=== PATIENT | female | born 1990 | race Caucasian/White ===

== ENCOUNTER 2018-04-22 21:08 | Inpatient (IN) ==
[2018-04-22] MEDS ORDERED: Ondansetron 4 MG/2 ML VIAL IVP PRN (23:46)
[2018-04-22] MEDS ORDERED: Acetaminophen 325 MG TABLET PO PRN (23:46)
[2018-04-22] MEDS ORDERED: *HR* FentaNYL (PF) 100 MCG/2 ML VIAL IVP PRN (23:46)
[2018-04-22] MEDS ORDERED: *HR* Promethazine 25 MG/ML VIAL IVP PRN (23:46)
[2018-04-22] MEDS ORDERED: Naloxone 0.4 MG/ML INJ IVP PRN (23:46)
[2018-04-23 00:54] LABS: Basophils # 0.1 K/mcL (0.0-0.2); Basophils % 0.4 %; Eosinophils # 0.1 K/mcL (0.0-0.6); Eosinophils % 0.6 %; Hematocrit 39.3 % (35.3-44.9); Hemoglobin 12.7 g/dL (11.5-15.4); Immature Granulocytes % 0.3 % (0-4); Lymphocytes # 3.3 K/mcL (0.6-4.6); Mean Corpuscular HGB Conc 32.3 g/dL (31.6-35.5); Mean Corpuscular Hemoglobin 29.1 pg (28.0-33.3); Mean Corpuscular Volume 89.9 fL (83.0-100.0); Mean Platelet Volume 10.1 fL (9.4-12.4); Monocytes # 0.6 K/mcL (0.0-1.3); Monocytes % 4.7 %; Neutrophils # 8.7 K/mcL (1.6-8.9); Platelet Count 448 K/mcL (140-400); Red Blood Count 4.37 M/mcL (3.82-4.97); Red Cell Distribution Width 14.3 % (11.5-14.5)
[2018-04-23 01:04] LABS: Activated Partial Thrombo Time 28.5 Seconds (26.0-36.0)
--- NOTE | 2018-04-23 01:07 | Internal Med History&Physical ---
Date of Encounter: 04/22/18 Time of Encounter: 23:25 Internal Medicine - H&P: HPI Chief complaint: flank pain; N/V; fever; UTI Admitted From: Hospital to Hospital Transfer Plans for Post Hospital Care: Home History of present illness: Ms. Castillo is a 27 year old female who presents in transfer from [facility]. She presented there with complaints of flank pain, nausea, vomiting, fever, and UTI. She was found to have evidence of obstructive uropathy on imaging with a 4 mm ureteral stone and subsequent hydronephrosis. She also has evidence of UTI. [facility] tried to transfer her to [facility] where her urologist practices, but unfortunately, her urologist is not available this weekend. [facility] therefore contacted [place] and requested transfer here. Dr. Shaffer accepted the patient in transfer with consultation to him and requested hospitalist admission. I spoke with the ER staff at [facility] and accepted the patient in transfer. Unfortunately I cannot find her transfer records and/or imaging report. However, per verbal discussion with the ER staff, the above was communicated to me. Upon my assessment of the patient, patient appears uncomfortable, nauseated, and dehydrated. She denies any chills or night sweats, but she has had some fevers. She has had dysuria, urgency, frequency, and some hematuria. She has been on Macrodantin for about a week for UTI without relief. She developed flank pain with subsequent nausea and vomiting over the last 24 hours, and these symptoms have progressively worsened. Patient has a history of recurrent kidney stones and UTI. She has a history of vesicoureteral reflux and has had multiple interventions for a ureteral stenting, ureteral reimplantation, and urologic studies. Unfortunately, patient is allergic to multiple antibiotics and pain medications with significant reactions. I called our pharmacist and discussed options with him. Recommendation is to treat her with ertapenem antibiotic and fentanyl for narcotic pain control. Past Med Surg Social Fam HX - Past Medical History Attestation: Yes The following information was validated with the patient. Source: patient, other (phone conversation with [facility]) Medical history: hypertension, kidney stones, migraine Additional medical history: kidney stones, bladder infection, kidney infection, feverable seizures, tubes in ears, migraines Psychiatric history: anxiety, depression - Past Surgical History Additional surgical history: kidney surgery, tubes in ears - Social History Smoking Status: Never smoker Smokeless Tobacco Status: No Alcohol use: none Drug use: none Current living situation: Home Activity Level: Independent ambulation Recent Out of Country Travel Within the Last 8 Weeks: No - Family History Father Hx Family Cardiac Disorders: Yes (HTN) Hx Family Endocrine Disorder: Yes (diabetes) Internal Medicine - H&P: Meds DiphenhydraMINE [Benadryl] 25 mg PO HS 04/22/18 [History] Effexor Xr 04/22/18 [History] Losartan Potassium [Cozaar] 50 mg PO DAILY 04/22/18 [History] Melatonin 10 mg PO HS 04/22/18 [History] Omeprazole [PriLOSEC] 40 mg PO DAILY 04/22/18 [History] Ranitidine HCl [Acid Wedding Decorator] 150 mg PO HS 04/22/18 [History] Venlafaxine XR (24 HR) [Effexor XR] 37.5 mg PO DAILY 04/22/18 [History] Venlafaxine XR (24 HR) [Effexor XR] 150 mg PO DAILY 04/22/18 [History] Verapamil [Isoptin] 80 mg PO DAILY 04/22/18 [History] 3 Allergy/AdvReac Type Severity Reaction Status Date / Time cephalexin [From Keflex] Allergy Hives Verified 04/22/18 23:15 ciprofloxacin [From Cipro] Allergy Hives Verified 04/22/18 23:15 ketorolac [From Toradol] Allergy Hives Verified 04/22/18 23:15 levofloxacin [From Levaquin] Allergy Hives Verified 04/22/18 23:15 morphine Allergy Hives Verified 04/22/18 23:15 Penicillins Allergy Hives Verified 04/22/18 23:15 - Constitutional Constitutional: fever(s), no chills, no night sweats - EENT Eyes: no blurry vision, no change in vision Ears: no ear pain, no tinnitus Nose, mouth and throat: no sore throat - Cardiovascular Cardiovascular ROS IM: no chest pain, no dyspnea - Respiratory Respiratory: no cough, no hemoptysis - Gastrointestinal Gastrointestinal: nausea, vomiting, no abdominal pain, no diarrhea, no hematemesis, no hematochezia, no melena - Genitourinary Genitourinary: dysuria, flank pain, hematuria, urinary urgency - Musculoskeletal Musculoskeletal ROS IM: no arthralgias, no joint swelling - Integumentary Integumentary IM: no rash, no jaundice - Neurological Neurological ROS: no focal weakness, no headache(s) - Psychiatric Psychiatric: no anxiety, no depression - Endocrine Endocrine IM: no polydipsia, no polyuria - Allergic/Immunologic Allergic/Immunologic: no GI upset with certain foods - Constitutional Vitals: Temp Pulse Resp BP Pulse Ox 98.4 F 131 18 131/87 100 04/22/18 23:31 04/22/18 23:31 04/22/18 23:31 04/22/18 23:31 04/22/18 23:31 General appearance: Present: cooperative, mild distress, A&O X 3, pleasant, answers questions appropriately Exam: nauseated, in moderate pain, and dehydrated - Head Head exam: Present: atraumatic, normal inspection - Eye Eye exam: Present: EOMI, PERRL. Absent: scleral icterus Pupils: Present: normal accommodation - ENT ENT exam: Present: mucous membranes dry, normal exam, normal oropharynx - Neck Neck exam general surgery: Present: full ROM, supple. Absent: tenderness, nuchal rigidity, thyromegaly - Respiratory Respiratory exam: Present: CTAB. Absent: rales, respiratory distress, rhonchi, wheezes - Cardiovascular Cardiovascular exam: Present: RRR, +S1, +S2, tachycardia. Absent: diastolic murmur, systolic murmur - GI/Abdominal GI/Abdominal exam: Present: normal bowel sounds, soft, tenderness (suprapubic), no peritoneal signs. Absent: guarding, hepatomegaly, mass, rebound, splenomegaly - Extremities Exam Extremities exam: Present: normal capillary refill, warm, radial pulses palpable and symmetrical. Absent: calf tenderness, joint swelling, pedal edema - Back Exam Back exam: Present: CVA tenderness (L), CVA tenderness (R), normal inspection - Neurological Exam Neurological exam: Present: alert, CN II-XII intact, oriented X3, no focal deficits, strengths equal and symetr throughout - Psychiatric Psychiatric exam: Present: normal affect, normal mood - Skin Skin exam: Present: dry, warm. Absent: rash Internal Med - H&P Results - Labs CBC & Chem 7: 04/23/18 00:36 Labs: Short CBC 06/16/18 Range/Units 00:36 WBC 12.8 H (4.3-11.1) K/mcL Hgb 12.7 (11.5-15.4) g/dL Hct 39.3 (35.3-44.9) % Plt Count 448 H (140-400) K/mcL Neutrophils # 8.7 (1.6-8.9) K/mcL - Assessment and plan (1) Pyelonephritis Current Visit: Yes Status: Acute Assessment and plan: 1. Will order blood and urine cultures. 2. Aggressive IVF hydration. 3. Will treat with Ertapenem antibiotics as discussed with pharmacy. 4. Follow cultures and adjust antibiotics as necessary. (2) Obstructive uropathy Current Visit: Yes Status: Acute Assessment and plan: 1. 4 mm kidney stone with hydronephrosis as noted per discussions with Arnoldo CHOUDHARY. 2. Dr. Shaffer consulted and plans for cystoscopy and stent placement in the morning. 3. IVF hydration, pain medication, anti-emetics as needed. 4. Follow renal function and I/O closely. (3) Urolithiasis Current Visit: Yes Status: Acute Assessment and plan: 1. As noted above, IVF hydration and pain/nausea control. 2. Stone extraction, cystoscopy, stenting per urology. Qualifiers: Urinary calculus location: ureter Qualified Code(s): N20.1 - Calculus of ureter (4) DVT prophylaxis Current Visit: Yes Status: Acute Assessment and plan: 1. Heparin SQ.
[2018-04-23 01:13] LABS: Alanine Aminotransferase 13 Units/L (7-52); Albumin 3.9 g/dL (3.5-5.7); Albumin/Globulin Ratio 1.3 (1.1-2.2); Alkaline Phosphatase 118 Units/L (34-104); Aspartate Amino Transferase 15 Units/L (13-39); BUN/Creatinine Ratio 5 (6-26); Bilirubin,Total 0.6 mg/dL (0.3-1.0); Blood Urea Nitrogen 4 mg/dL (6-20); Calcium 8.9 mg/dL (8.6-10.3); Carbon Dioxide 22 mEq/L (23-29); Chloride 104 mEq/L (98-107); Glucose 99 mg/dL (70-105); Osmolality,Calculated 283 (280-300); Potassium 3.8 mEq/L (3.5-5.1); Sodium 138 mEq/L (136-145); Total Protein 6.9 g/dL (6.4-8.9); eGFR For African Americans > 60 (> 60); eGFR For Non-African Americans > 60 (> 60)
[2018-04-23] MEDS: Ertapenem 1,000 MG in 0.9 % Sodium Chloride Mini Bag 100 ML IVPB SCH (01:31)
[2018-04-23] MEDS: 0.9 % Sodium Chloride 1,000 ML IVC SCH ×2 (01:31→16:29)
[2018-04-23 01:34] LABS: INR 1.1; Prothrombin Time 11.7 Seconds (9.4-12.1)
[2018-04-23] MEDS ORDERED: 0.9 % Sodium Chloride 1,000 ML IV ONE (02:37)
[2018-04-23] MEDS: *HR* HYDROmorphone (PF) 1 MG/ML SYRINGE IVP PRN ×2 (02:45→05:47)
[2018-04-23] MEDS ORDERED: *HR* Heparin 5,000 UNIT/ML VIAL SQ SCH (06:00)
--- NOTE | 2018-04-23 06:48 | Urology - Consult Note ---
Date of Encounter: 04/23/18 Time of Encounter: 06:46 - Assessment and Plan (1) UTI (urinary tract infection) Current Visit: Yes Status: Acute Assessment and plan: 27-year-old woman with concern for urinary tract infection and obstructing right proximal ureteral stone. She has been started on ertapenem. Urine cultures are pending. She has been afebrile. We will continue antibiotic until her cultures return. Qualifiers: Urinary tract infection type: acute cystitis Hematuria presence: without hematuria Qualified Code(s): N30.00 - Acute cystitis without hematuria (2) Urolithiasis Current Visit: Yes Status: Acute Assessment and plan: 27-year-old woman with a right proximal ureteral stone. I recommend proceeding with a cystoscopy and right ureteral stent placement. I informed her of the risks of the surgery which include but are not limited to bleeding, infection, injury to other structures, need for further procedures, stent irritation, need for nephrostomy tube, and the risk of anesthesia. She is willing to proceed. Qualifiers: Urinary calculus location: ureter Qualified Code(s): N20.1 - Calculus of ureter Urology CN:[facility] Consult date: 04/23/18 Reason for consult Urology: Other (right ureteral stone) History of present illness: A 27-year-old woman with a long-standing history of nephrolithiasis was transferred from [facility] to [facility] for an obstructing right proximal ureteral stone. She developed right flank pain in the last 1-2 days. The pain became more severe. It radiated to the right lower quadrant. She had some nausea. She denies any fevers. She lives near [place]. She went to the [facility] ER in [place]. She was then transferred to [place] for further care. She reports a long-standing history of nephrolithiasis. She reports she has had multiple stone surgeries. In addition, she says she has had possible ureteral reflux surgery. She does have a Pfannenstiel incision scar. She reports that previous urologists have not had any issues accessing her ureters. She reports that her mother and father both have a history of kidney stones. She reports that she was recently diagnosed with a urinary tract infection. She was given antibiotic as well as Pyridium. She has not had any fevers upon admission. Past Med Surg Social Fam HX - Past Medical History Medical history: hypertension, kidney stones, migraine Additional medical history: kidney stones, bladder infection, kidney infection, feverable seizures, tubes in ears, migraines Psychiatric history: anxiety, depression - Past Surgical History Additional surgical history: kidney surgery, tubes in ears - Social History Smoking Status: Never smoker Smokeless Tobacco Status: No Alcohol use: none Drug use: none - Family History Father Hx Family Cardiac Disorders: Yes (HTN) Hx Family Endocrine Disorder: Yes (diabetes) Medications and Allergies DiphenhydraMINE [Benadryl] 25 mg PO HS 04/22/18 [History] Effexor Xr 04/22/18 [History] Losartan Potassium [Cozaar] 50 mg PO DAILY 04/22/18 [History] Melatonin 10 mg PO HS 04/22/18 [History] Omeprazole [PriLOSEC] 40 mg PO DAILY 04/22/18 [History] Ranitidine HCl [Acid Cigarette Maker] 150 mg PO HS 04/22/18 [History] Venlafaxine XR (24 HR) [Effexor XR] 37.5 mg PO DAILY 04/22/18 [History] Venlafaxine XR (24 HR) [Effexor XR] 150 mg PO DAILY 04/22/18 [History] Verapamil [Isoptin] 80 mg PO DAILY 04/22/18 [History] 3 Allergy/AdvReac Type Severity Reaction Status Date / Time cephalexin [From Keflex] Allergy Hives Verified 04/22/18 23:15 ciprofloxacin [From Cipro] Allergy Hives Verified 04/22/18 23:15 ketorolac [From Toradol] Allergy Hives Verified 04/22/18 23:15 levofloxacin [From Levaquin] Allergy Hives Verified 04/22/18 23:15 morphine Allergy Hives Verified 04/22/18 23:15 Penicillins Allergy Hives Verified 04/22/18 23:15 Review of Systems - Constitutional no chills, no fever(s) - EENT Nose, mouth and throat: no dizziness - Cardiovascular no chest pain - Respiratory no dyspnea - Gastrointestinal nausea - Genitourinary Genitourinary: flank pain, no hematuria - Musculoskeletal no back pain - Integumentary no erythema, no rash - Neurological no weakness - Psychiatric no suicidal ideation - Hematologic/Lymphatic no easy bleeding - Allergic/Immunologic no wheezing Exam Initial Vital Signs Temp Pulse Resp BP Pulse Ox 98.4 F 131 18 131/87 100 04/22/18 23:31 04/22/18 23:31 04/22/18 23:31 04/22/18 23:31 04/22/18 23:31 - General physical appearance Present: well developed, well nourished, no distress - Eyes Absent: icteric - ENT Present: normal nares - Neck Present: trachea midline - Respiratory Present: normal respiratory effort - Cardiovascular Cardiovascular exam IM: RRR - Abdomen Abdomen: Present: soft (Pfannenstiel incision scar noted.) - Integumentary Present: no rash - Neurologic Present: normal coordination - Musculoskeletal Present: other (grossly normal.) Urology Results - Labs 04/23/18 00:36 04/23/18 00:36 Abnormal lab results WBC 12.8 K/mcL (4.3-11.1) H 04/23/18 00:36 Plt Count 448 K/mcL (140-400) H 04/23/18 00:36 Carbon Dioxide 22 mEq/L (23-29) L 04/23/18 00:36 BUN 4 mg/dL (6-20) L 04/23/18 00:36 BUN/Creatinine Ratio 5 (6-26) L 04/23/18 00:36 Alkaline Phosphatase 118 Units/L (34-104) H 04/23/18 00:36 Diabetes panel 04/23/18 Range/Units 00:36 Sodium 138 (136-145) mEq/L Potassium 3.8 (3.5-5.1) mEq/L Chloride 104 (98-107) mEq/L Carbon Dioxide 22 L (23-29) mEq/L BUN 4 L (6-20) mg/dL Creatinine 0.75 (0.60-1.20) mg/dL Glucose 99 (70-105) mg/dL Calcium 8.9 (8.6-10.3) mg/dL AST 15 (13-39) Units/L ALT 13 (7-52) Units/L Alkaline Phosphatase 118 H (34-104) Units/L Albumin 3.9 (3.5-5.7) g/dL Calcium panel 04/23/18 Range/Units 00:36 Calcium 8.9 (8.6-10.3) mg/dL Albumin 3.9 (3.5-5.7) g/dL Pituitary panel 04/23/18 Range/Units 00:36 Sodium 138 (136-145) mEq/L Potassium 3.8 (3.5-5.1) mEq/L Chloride 104 (98-107) mEq/L Carbon Dioxide 22 L (23-29) mEq/L BUN 4 L (6-20) mg/dL Creatinine 0.75 (0.60-1.20) mg/dL Glucose 99 (70-105) mg/dL Calcium 8.9 (8.6-10.3) mg/dL Adrenal panel 04/23/18 Range/Units 00:36 Sodium 138 (136-145) mEq/L Potassium 3.8 (3.5-5.1) mEq/L Chloride 104 (98-107) mEq/L Carbon Dioxide 22 L (23-29) mEq/L BUN 4 L (6-20) mg/dL Creatinine 0.75 (0.60-1.20) mg/dL Glucose 99 (70-105) mg/dL Calcium 8.9 (8.6-10.3) mg/dL Total Bilirubin 0.6 (0.3-1.0) mg/dL AST 15 (13-39) Units/L ALT 13 (7-52) Units/L Alkaline Phosphatase 118 H (34-104) Units/L Albumin 3.9 (3.5-5.7) g/dL All other labs normal. - Imaging CT scan - abdomen: report reviewed CT scan - pelvis: report reviewed Consult Discharge Plan - Plan Referrals: Rima Lam [Primary Care Provider] -
--- NOTE | 2018-04-23 07:12 | Anesthesia Evaluation PreOp ---
Date of Encounter: 04/23/18 Time of Encounter: 07:55 - Past History Planned Operation: Cystoscopy, ureteral stent placement Cardiac History: HTN Pulmonary History: Denies Any Significant HX E D TECH History: Other (Anxiety, Depression, Migraine headaches,) Other Medical History: Renal (VUR, Recurrent UTI, Transferred from OSH with onstructive uropathy secondary to ureteric stone, UTI), Other (MOrbid obesity, BMI 51) Anesthesia History: No Prior Anesthetic Complications, Past Anesthesia ( Multiple urological procedures for VUR) : No Test: Negative Alcohol Use: none Drug use: none Medications and Allergies DiphenhydraMINE [Benadryl] 25 mg PO HS 04/22/18 [History] Effexor Xr 04/22/18 [History] Losartan Potassium [Cozaar] 50 mg PO DAILY 04/22/18 [History] Melatonin 10 mg PO HS 04/22/18 [History] Omeprazole [PriLOSEC] 40 mg PO DAILY 04/22/18 [History] Ranitidine HCl [Acid Operations And Maintenance Technician] 150 mg PO HS 04/22/18 [History] Venlafaxine XR (24 HR) [Effexor XR] 37.5 mg PO DAILY 04/22/18 [History] Venlafaxine XR (24 HR) [Effexor XR] 150 mg PO DAILY 04/22/18 [History] Verapamil [Isoptin] 80 mg PO DAILY 04/22/18 [History] 3 Allergy/AdvReac Type Severity Reaction Status Date / Time cephalexin [From Keflex] Allergy Hives Verified 04/22/18 23:15 ciprofloxacin [From Cipro] Allergy Hives Verified 04/22/18 23:15 ketorolac [From Toradol] Allergy Hives Verified 04/22/18 23:15 levofloxacin [From Levaquin] Allergy Hives Verified 04/22/18 23:15 morphine Allergy Hives Verified 04/22/18 23:15 Penicillins Allergy Hives Verified 04/22/18 23:15 - Meds/Allergy Pre-op Review Medications Reviewed: Yes Allergies Reviewed: Yes Anesthesia Results - Labs 04/23/18 00:36 04/23/18 00:36 Laboratory Tests 04/23/18 00:36 Calcium 8.9 Alkaline Phosphatase 118 H Serum Total Protein 6.9 Albumin 3.9 Laboratory Tests 04/23/18 07:30 Urine Test Negative Anesthesia Exam O2 Sat Height 1.55 m Height 1.55 m Weight 121.7 kg Weight 115.666 kg O2 Sat by Pulse Oximetry 97 O2 Sat by Pulse Oximetry 100 O2 Sat by Pulse Oximetry 100 Vital Signs/O2 Sat, Most Current Temp Pulse Resp BP Pulse Ox 98.3 F 113 16 184/98 97 04/23/18 07:00 04/23/18 07:00 04/23/18 07:00 04/23/18 07:00 04/23/18 07:00 NPO (# of Hours): 8 - HEENT Pupil (Motor): Pupils equal Mallampati: IV Teeth: Normal Oral Opening: Greater than 3 - E D TECH LOC: Oriented - Cardiac Rhythm: Regular - Pulmonary Breath Sounds: bilateral Clear Anesthesia Assess/Plan ASA Score: 3 Modified Sherborn Scale for Level of Consciousness: Cooperative, oriented, and tranquil Anesthetic Plan: General Monitoring Plan: Standard Monitors Recovery Plan: PACU
[2018-04-23] MEDS ORDERED: Isovue-300 50 ML VIAL IVP ONE (07:53)
[2018-04-23] MEDS ORDERED: Metoclopramide 10 MG/2 ML VIAL ONE (07:58)
[2018-04-23] MEDS ORDERED: Famotidine 20 MG/2 ML VIAL ONE (07:58)
[2018-04-23 08:07] LABS: Bilirubin,Urine Negative (Negative); Blood,Urine Large (Negative); Clarity,Urine Clear (Clear); Color,Urine Yellow (Yellow); Glucose,Urine (UA) Normal (Normal); Ketones,Urine 40 mg/dL (Negative); Leukocyte Esterase,Urine Small (Negative); Nitrite,Urine Negative (Negative); Protein,Urine Negative (Neg-Trace); Specific Gravity,Urine 1.014 (1.010-1.025); Urobilinogen,Urine Normal (Normal)
[2018-04-23 08:10] LABS: Bacteria,Urine None Seen per hpf (None-Few); Hyaline Casts,Urine None Seen per lpf (None-Few); RBC,Urine 50-100 per hpf (0-3); Squamous Epithelial Cell,Urine Many per lpf (None-Few); WBC,Urine 15-30 per hpf (0-3)
[2018-04-23] MEDS ORDERED: *HR* FentaNYL (PF) 100 MCG/2 ML VIAL ONE ×2 (08:43)
[2018-04-23] MEDS ORDERED: Lidocaine -MPF 2% 2 ML VIAL ONE ×2 (08:43)
[2018-04-23] MEDS ORDERED: *HR* Midazolam HCl 2 MG/2 ML VIAL ONE (08:43)
[2018-04-23] MEDS ORDERED: *HR* Propofol 200 MG/20 ML VIAL IVP ONE (08:43)
[2018-04-23] MEDS ORDERED: *HR* Succinylcholine 200 MG/10 ML VIAL IVP ONE (08:43)
[2018-04-23] MEDS ORDERED: *HR* Promethazine 25 MG/ML VIAL IVP PRN (08:50)
[2018-04-23] MEDS ORDERED: Acetaminophen IV 1,000 MG/100 ML INFUS..BTL IVPB ONE (08:50)
[2018-04-23] MEDS ORDERED: Ondansetron 4 MG/2 ML VIAL IVP ONE (08:50)
[2018-04-23] MEDS ORDERED: Dexamethasone 4 MG/ML VIAL ONE (08:52)
--- NOTE | 2018-04-23 09:03 | Operative Note ---
Date of procedure: 04/23/18 Pre-op diagnosis: Right ureteral stone, urinary tract infection Post-op diagnosis: same Procedure: Cystoscopy, right ureteral stent placement Implants: 6-Kinyarwanda by 24 cm double-J stent Complications: None Anesthesia: GETA Surgeon: Lior Shaffer Was there an automotive parts counter assistant present: No Estimated blood loss (cc): 0 Specimen: None Condition: stable Disposition: PACU Procedure in Detail: Indications: Carlton is a 27-year-old woman who has a history of nephrolithiasis. She had a CT which showed a right proximal ureteral stone. She has concern for a urinary tract infection. She elected to undergo a cystoscopy and right ureteral stent placement. She was aware of the risks of the procedure including but not limited to bleeding, infection, injury to other structures, need for further procedures, stent irritation, need for nephrostomy tube, need for open repair, risks otherwise unforeseen, and the risk of anesthesia. She is willing to proceed. Procedure in Detail: After informed consent was obtained the patient was brought back to the operating room and placed in supine position. A time out was performed. General anesthesia was administered and an endotracheal tube was placed. She was then placed in the lithotomy position. She was prepped and draped in the usual sterile fashion. Cystoscopy was performed. The anterior urethra was normal. There was no evidence of bladder tumors. The ureteral orifices were in the normal orthotopic position. There was no duplication of the ureteral orifices. The sensor wire was placed in the right ureteral orifice. The wire was moved into the kidney under fluoroscopic guidance. A 6 Kinyarwanda by 24cm JJ stent was then placed. The dangle strings were removed. The bladder was drained. The patient was then awakened from general anesthesia and brought to recovery room in good condition. All sponge, needle, and instrument counts were correct.
[2018-04-23] MEDS ORDERED: *HR* Labetalol 20 MG/4 ML SYRINGE IVP PRN (09:12)
[2018-04-23] MEDS ORDERED: *HR* HYDROmorphone (PF) 1 MG/ML SYRINGE IVP PRN ×2 (09:34)
[2018-04-23] MEDS ORDERED: *HR* OxyCODONE Immed Rel 5 MG TABLET PO PRN ×3 (09:34→13:20)
[2018-04-23] MEDS ORDERED: OXYCODONE Oral CONC 10 MG/0.5 ML ORAL.SYG SL PRN (09:45)
--- NOTE | 2018-04-23 10:11 | Anesthesia Evaluation Post Op ---
Date of Encounter: 04/23/18 Time of Encounter: 10:10 - Vital Signs Vital Signs: Vital Signs/O2 Sat/Glucose, Most Recent Temp Pulse Resp BP Pulse Ox 97.6 F 115 20 157/94 94 04/23/18 10:04 04/23/18 10:04 04/23/18 10:04 04/23/18 10:04 04/23/18 10:04 return to baseline vitals, prn oxygen via nasal cannula - Lungs Lungs: Clear Ascult./Percussion - Airway Airway: Non-obstructed - Cardiovascular Regular Rate - Mental Status Mental Status: Alert & Oriented, Answers Appropriately - Pain Pain Scale: 0 (resting comfortably) Pain Scale used: Numeric (1 - 10) - Nausea Vomiting Nausea Vomiting: Not Present - Hydration Hydration: NPO - Discharge PostOp Status: Transfer Patient to floor
[2018-04-23] MEDS ORDERED: 0.9 % Sodium Chloride 1,000 ML IVC SCH (10:43)
[2018-04-23] MEDS ORDERED: Naloxone 0.4 MG/ML INJ IVP PRN (10:43)
[2018-04-23] MEDS ORDERED: Acetaminophen 325 MG TABLET PO PRN (10:43)
[2018-04-23] MEDS ORDERED: *HR* HYDROmorphone (PF) 1 MG/ML SYRINGE IVP ONE ×2 (11:54→21:56)
--- NOTE | 2018-04-23 11:55 | Internal Med Progress Note ---
<AngelicDaniel morales - Last Filed: 04/23/18 11:53> Date of Encounter: 04/23/18 Time of Encounter: 11:53 - Assessment and plan (1) Pyelonephritis Current Visit: Yes Status: Acute Assessment and plan: Likely secondary to obstructive uropathy in the setting of kidney stone. Status post cystoscopy with ureteral stent placement this morning. Clinically improved. Blood and urine cultures pending. Continue ertapenem given multiple antibiotic allergies. (2) Obstructive uropathy Current Visit: Yes Status: Acute Assessment and plan: Status post cystoscopy with stent placement this morning. Renal function was normal. We will continue to monitor daily. (3) Urolithiasis Current Visit: Yes Status: Acute Assessment and plan: Resolving of pyelonephritis as above. Status post cystoscopy with stent placement this morning. Urology following. Qualifiers: Urinary calculus location: ureter Qualified Code(s): N20.1 - Calculus of ureter (4) DVT prophylaxis Current Visit: Yes Status: Acute Assessment and plan: Heparin SQ. - Time Spent With Patient Total time spent is greater than 50% in coordination of care (as documented) at patient's floor/unit and/or counseling patient: - Subjective Interval history: Patient seen and examined at bedside. Patient reports mild dysuria and mild back pain that is improved since admission. She tolerated her cystoscopy well. She denies fever, chills, chest pain, shortness of breath - Constitutional Vitals: Temp Pulse Resp BP Pulse Ox 97.6 F 115 20 157/94 94 04/23/18 10:04 04/23/18 10:04 04/23/18 10:04 04/23/18 10:04 04/23/18 10:04 General appearance: Present: cooperative, A&O X 3, pleasant, answers questions appropriately - Respiratory Respiratory exam: Present: CTAB. Absent: rales, rhonchi, wheezes - Cardiovascular Cardiovascular exam: Present: RRR. Absent: gallop, rubs, systolic murmur - GI/Abdominal GI/Abdominal exam: Present: normal bowel sounds, soft, tenderness (mild diffuse) - Extremities Exam Extremities exam: Present: warm. Absent: pedal edema, tenderness Internal Medicine: Result - Labs CBC & Chem 7: 04/23/18 00:36 04/23/18 00:36 Labs: Short CBC 04/23/18 Range/Units 00:36 WBC 12.8 H (4.3-11.1) K/mcL Hgb 12.7 (11.5-15.4) g/dL Hct 39.3 (35.3-44.9) % Plt Count 448 H (140-400) K/mcL Neutrophils # 8.7 (1.6-8.9) K/mcL BMP 04/23/18 00:36 Sodium 138 Potassium 3.8 Chloride 104 Carbon Dioxide 22 L BUN 4 L Creatinine 0.75 Glucose 99 Calcium 8.9 Liver Function 04/23/18 Range/Units 00:36 Total Bilirubin 0.6 (0.3-1.0) mg/dL AST 15 (13-39) Units/L ALT 13 (7-52) Units/L Alkaline Phosphatase 118 H (34-104) Units/L Albumin 3.9 (3.5-5.7) g/dL Urine 04/23/18 Range/Units 07:30 Urine Color Yellow (Yellow) Urine Clarity Clear (Clear) Urine pH 6.0 (5.0-8.0) pH Units Ur Specific [place] 1.014 (1.010-1.025) Urine Protein Negative (Neg-Trace) mg/dL Urine Glucose (UA) Normal (Normal) mg/dL - ABG Interpretation ABG results: PT/INR, D-dimer PT 11.7 Seconds (9.4-12.1) 04/23/18 00:36 - Impressions Impressions [facility] X-Ray 04/23/18 06:27 IMPRESSION: 1. No visualized abnormal calcifications. D/ / Abdulaziz Remy MD / Abdulaziz Remy MD Interpreting Provider: Abdulaziz Remy MD Consult Discharge Plan - Plan Referrals: Rima Lam [Primary Care Provider] - <Andria Evans - Last Filed: 04/23/18 15:14> Date of Encounter: 04/23/18 - Assessment and plan (1) Pyelonephritis Current Visit: Yes Status: Acute (2) Obstructive uropathy Current Visit: Yes Status: Acute (3) Urolithiasis Current Visit: Yes Status: Acute Qualifiers: Urinary calculus location: ureter Qualified Code(s): N20.1 - Calculus of ureter (4) DVT prophylaxis Current Visit: Yes Status: Acute - Time Spent With Patient Total time spent is greater than 50% in coordination of care (as documented) at patient's floor/unit and/or counseling patient: - Constitutional Vitals: Temp Pulse Resp BP Pulse Ox 97.6 F 115 20 157/94 94 04/23/18 10:04 04/23/18 10:04 04/23/18 10:04 04/23/18 10:04 04/23/18 10:04 Internal Medicine: Result - Labs CBC & Chem 7: 04/23/18 00:36 04/23/18 00:36 Labs: Short CBC 04/23/18 Range/Units 00:36 WBC 12.8 H (4.3-11.1) K/mcL Hgb 12.7 (11.5-15.4) g/dL Hct 39.3 (35.3-44.9) % Plt Count 448 H (140-400) K/mcL Neutrophils # 8.7 (1.6-8.9) K/mcL BMP 04/23/18 00:36 Sodium 138 Potassium 3.8 Chloride 104 Carbon Dioxide 22 L BUN 4 L Creatinine 0.75 Glucose 99 Calcium 8.9 Liver Function 04/23/18 Range/Units 00:36 Total Bilirubin 0.6 (0.3-1.0) mg/dL AST 15 (13-39) Units/L ALT 13 (7-52) Units/L Alkaline Phosphatase 118 H (34-104) Units/L Albumin 3.9 (3.5-5.7) g/dL Urine 04/23/18 Range/Units 07:30 Urine Color Yellow (Yellow) Urine Clarity Clear (Clear) Urine pH 6.0 (5.0-8.0) pH Units Ur Specific [place] 1.014 (1.010-1.025) Urine Protein Negative (Neg-Trace) mg/dL Urine Glucose (UA) Normal (Normal) mg/dL - ABG Interpretation ABG results: PT/INR, D-dimer PT 11.7 Seconds (9.4-12.1) 04/23/18 00:36 - Impressions Impressions Fluoroscopy 04/23/18 00:00 IMPRESSION: Intraprocedural fluoroscopic spot images as above. See separate procedure report for more information. D/ / Mine Odell MD / Mine Odell MD Interpreting Provider: Mine Odell MD X-Ray 04/23/18 00:00 IMPRESSION: Intraprocedural fluoroscopic spot images as above. See separate procedure report for more information. D/ / Mine Odell MD / Mine Odell MD Interpreting Provider: Mine Odell MD X-Ray 04/23/18 06:27 IMPRESSION: 1. No visualized abnormal calcifications. D/ / Abdulaziz Remy MD / Abdulaziz Remy MD Interpreting Provider: Abdulaziz Remy MD - Attending Attestation I examined this patient and my medical decision-making was reviewed with the Resident Physician Dr. Valiente. I agree with the documented findings, disposition and treatment plan as described except to the extent set forth below. Ms. Castillo is a 27 year old female with recurrent UTI, Nephrolithiasis pt presented to [facility] ER with worsening Rt flank pain and Fever, chills. She does have obstructive uropathy with 4mm Rt distal ureter calculi and UTI too. So pt was transferred to our hospital for further care. She just cam eback from OR after cystoscopy with ureter stent placement.. Her pain is better now Gen: A, A, O x3 Chest: Diminished BS Heart: S1S+ Tachycardia Back : Rt CVA tenderness a/p 1. Sepsis 2. UTI 3. Pyelonephrtitis 4. Obstructive uropathy 5. Rt ureter cacluli IV fluids Analgesics Empirical abx s/p stent palcement 6. Uncontrolled HTN due to pain cont home meds also added Hydralazine PRN
[2018-04-23] MEDS: *HR* Heparin 5,000 UNIT/ML VIAL SQ SCH ×2 (14:07→19:57)
[2018-04-23] MEDS: Ondansetron 4 MG/2 ML VIAL IVP PRN ×2 (14:07→19:56)
[2018-04-23] MEDS: *HR* OxyCODONE Immed Rel 5 MG TABLET PO PRN (16:25)
[2018-04-23] MEDS: *HR* Promethazine 25 MG/ML VIAL IVP PRN ×2 (16:29→22:09)
[2018-04-23] MEDS ORDERED: MORPHINE SUL Oral CONC 10 MG/0.5 ML ORAL.SYG SL PRN (18:15)
[2018-04-23] MEDS ORDERED: *HR* FentaNYL (PF) 100 MCG/2 ML VIAL IVP PRN (18:26)
[2018-04-23] MEDS: Famotidine 20 MG TABLET PO SCH (19:57)
[2018-04-23] MEDS ORDERED: Famotidine 20 MG TABLET PO SCH (21:00)
--- NOTE | 2018-04-23 22:56 | Event Note ---
Date of Encounter: 04/23/18 Time of Encounter: 22:56 Per nursing, the patient threatened to leave AMA if her pain wasn't better controlled. She requested dialudid. Spoke with pharmacy and okay to give prn. I asked nursing to add documentation about the patients conversation with them about her wanting to leave AMA ,in the patient chart.
[2018-04-24] MEDS: 0.9 % Sodium Chloride 1,000 ML IVC SCH ×3 (00:23→17:25)
[2018-04-24] MEDS: *HR* OxyCODONE Immed Rel 5 MG TABLET PO PRN ×5 (01:07→21:14)
[2018-04-24] MEDS: *HR* Promethazine 25 MG/ML VIAL IVP PRN ×3 (04:13→21:13)
[2018-04-24] MEDS: *HR* HYDROmorphone 2 MG/ML SYRINGE IVP PRN ×2 (04:13→13:17)
[2018-04-24 05:21] LABS: Basophils % 0.1 %; Eosinophils % 0.1 %; Hematocrit 39.1 % (35.3-44.9); Hemoglobin 12.9 g/dL (11.5-15.4); Immature Granulocytes % 0.3 % (0-4); Lymphocytes # 1.7 K/mcL (0.6-4.6); Lymphocytes % 14.1 %; Mean Corpuscular Hemoglobin 29.9 pg (28.0-33.3); Mean Corpuscular Volume 90.7 fL (83.0-100.0); Mean Platelet Volume 10.3 fL (9.4-12.4); Monocytes # 0.6 K/mcL (0.0-1.3); Monocytes % 4.7 %; Neutrophils # 9.7 K/mcL (1.6-8.9); Platelet Count 446 K/mcL (140-400); Red Blood Count 4.31 M/mcL (3.82-4.97); Red Cell Distribution Width 14.3 % (11.5-14.5); Segmented Neutrophils % 80.7 %
[2018-04-24 06:27] LABS: BUN/Creatinine Ratio 6 (6-26); Blood Urea Nitrogen 4 mg/dL (6-20); Calcium 9.1 mg/dL (8.6-10.3); Carbon Dioxide 18 mEq/L (23-29); Chloride 109 mEq/L (98-107); Glucose 133 mg/dL (70-105); Osmolality,Calculated 287 (280-300); Potassium 4.5 mEq/L (3.5-5.1); Sodium 139 mEq/L (136-145); eGFR For African Americans > 60 (> 60); eGFR For Non-African Americans > 60 (> 60)
[2018-04-24] MEDS: *HR* Heparin 5,000 UNIT/ML VIAL SQ SCH ×3 (08:35→21:17)
[2018-04-24] MEDS: Ertapenem 1,000 MG in 0.9 % Sodium Chloride Mini Bag 100 ML IVPB SCH (08:41)
--- NOTE | 2018-04-24 09:38 | Urology Progress Note ---
Date of Encounter: 04/24/18 Time of Encounter: 09:36 - Assessment and Plan (1) UTI (urinary tract infection) Current Visit: Yes Status: Acute Assessment and plan: Await urine culture results from [facility]. Our urine culture was negative. Continue ertapenem for now. Hopefully, we will be able to transition to an oral medication which she is not allergic to. Qualifiers: Urinary tract infection type: acute cystitis Hematuria presence: without hematuria Qualified Code(s): N30.00 - Acute cystitis without hematuria (2) Urolithiasis Current Visit: Yes Status: Acute Assessment and plan: Postop day #1 status post right ureteral stent placement. She is having some pain. We will need to continue with oral pain medication and try to transition her off the need for IV narcotic. The stent will need to remain in place until definitive ureteroscopic stone extraction can be scheduled. I informed her this may not be until May before I can get her back in to the OR to remove her stone. Qualifiers: Urinary calculus location: ureter Qualified Code(s): N20.1 - Calculus of ureter Progress Note Narrative: Postop day #1 status post cystoscopy and right ureteral stent placement. She is having some pain after the stent placement. No fevers overnight. I called [facility], but no preliminary results are back on her urine culture. Objective Initial Vital Signs Temp Pulse Resp BP Pulse Ox 98.4 F 131 18 131/87 100 04/22/18 23:31 04/22/18 23:31 04/22/18 23:31 04/22/18 23:31 04/22/18 23:31 - General physical appearance Present: well developed, well nourished, no distress - Respiratory Present: normal respiratory effort - Abdomen Present: soft - Labs 04/24/18 04:58 04/24/18 04:58 Diabetes panel 04/24/18 Range/Units 04:58 Sodium 139 (136-145) mEq/L Potassium 4.5 (3.5-5.1) mEq/L Chloride 109 H (98-107) mEq/L Carbon Dioxide 18 L (23-29) mEq/L BUN 4 L (6-20) mg/dL Creatinine 0.66 (0.60-1.20) mg/dL Glucose 133 H (70-105) mg/dL Calcium 9.1 (8.6-10.3) mg/dL Calcium panel 04/24/18 Range/Units 04:58 Calcium 9.1 (8.6-10.3) mg/dL Pituitary panel 04/24/18 Range/Units 04:58 Sodium 139 (136-145) mEq/L Potassium 4.5 (3.5-5.1) mEq/L Chloride 109 H (98-107) mEq/L Carbon Dioxide 18 L (23-29) mEq/L BUN 4 L (6-20) mg/dL Creatinine 0.66 (0.60-1.20) mg/dL Glucose 133 H (70-105) mg/dL Calcium 9.1 (8.6-10.3) mg/dL Adrenal panel 04/24/18 Range/Units 04:58 Sodium 139 (136-145) mEq/L Potassium 4.5 (3.5-5.1) mEq/L Chloride 109 H (98-107) mEq/L Carbon Dioxide 18 L (23-29) mEq/L BUN 4 L (6-20) mg/dL Creatinine 0.66 (0.60-1.20) mg/dL Glucose 133 H (70-105) mg/dL Calcium 9.1 (8.6-10.3) mg/dL - VTE Documentation of Mechanical Device: Intermittent pneumatic compression device Consult Discharge Plan - Plan Referrals: Rima Lam [Primary Care Provider] -
--- NOTE | 2018-04-24 10:16 | Internal Med Progress Note ---
<Daniel Valiente - Last Filed: 04/24/18 10:13> Date of Encounter: 04/24/18 Time of Encounter: 10:14 - Assessment and plan (1) Pyelonephritis Current Visit: Yes Status: Acute Assessment and plan: Likely secondary to obstructive uropathy in the setting of kidney stone. Status post cystoscopy with ureteral stent placement yesterday morning. Still reporting significant pain, we will attempt to transition to oral pain medication. Blood and urine cultures no growth to date. We will attempt to obtain urine culture results from [facility] where the patient had her initial culture obtained. Continue ertapenem for now given multiple antibiotic allergies. (2) Obstructive uropathy Current Visit: Yes Status: Acute Assessment and plan: Status post cystoscopy with stent placement yesterday. Renal function remains normal. We will continue to monitor daily. (3) Urolithiasis Current Visit: Yes Status: Acute Assessment and plan: Status post cystoscopy with stent placement yesterday morning. Urology following. Qualifiers: Urinary calculus location: ureter Qualified Code(s): N20.1 - Calculus of ureter (4) DVT prophylaxis Current Visit: Yes Status: Acute Assessment and plan: Heparin SQ. - Time Spent With Patient Total time spent is greater than 50% in coordination of care (as documented) at patient's floor/unit and/or counseling patient: - Subjective Interval history: Patient seen and examined at bedside. Patient reports continued right flank pain with nausea and vomiting. She tolerated her cystoscopy well. She denies fever, chills, chest pain, shortness of breath - Constitutional Vitals: Temp Pulse Resp BP Pulse Ox 98.3 F 137 17 146/76 97 04/24/18 07:59 04/24/18 07:59 04/24/18 07:59 04/24/18 07:59 04/24/18 07:59 General appearance: Present: cooperative, A&O X 3, pleasant, answers questions appropriately - Respiratory Respiratory exam: Present: CTAB. Absent: rales, rhonchi, wheezes - Cardiovascular Cardiovascular exam: Present: tachycardia. Absent: gallop, irregular rhythm, rubs, systolic murmur - GI/Abdominal GI/Abdominal exam: Present: normal bowel sounds, soft. Absent: distended, tenderness Additional comments: Right flank tenderness - Extremities Exam Extremities exam: Present: pedal edema (Trace lower extremity bilaterally), warm. Absent: tenderness Internal Medicine: Result - Labs CBC & Chem 7: 04/24/18 04:58 04/24/18 04:58 Labs: Short CBC 04/24/18 Range/Units 04:58 WBC 12.0 H (4.3-11.1) K/mcL Hgb 12.9 (11.5-15.4) g/dL Hct 39.1 (35.3-44.9) % Plt Count 446 H (140-400) K/mcL Neutrophils # 9.7 H (1.6-8.9) K/mcL BMP 04/24/18 04:58 Sodium 139 Potassium 4.5 Chloride 109 H Carbon Dioxide 18 L BUN 4 L Creatinine 0.66 Glucose 133 H Calcium 9.1 - ABG Interpretation ABG results: PT/INR, D-dimer PT 11.7 Seconds (9.4-12.1) 04/23/18 00:36 - Impressions Impressions Fluoroscopy 04/23/18 00:00 IMPRESSION: Intraprocedural fluoroscopic spot images as above. See separate procedure report for more information. D/ / Mine Odell MD / Mine Odell MD Interpreting Provider: Mine Odell MD X-Ray 04/23/18 00:00 IMPRESSION: Intraprocedural fluoroscopic spot images as above. See separate procedure report for more information. D/ / Mine Odell MD / Mine Odell MD Interpreting Provider: Mine Odell MD - VTE Documentation of Mechanical Device: Intermittent pneumatic compression device Consult Discharge Plan - Plan Referrals: Rima Lam [Primary Care Provider] - <Andria Evans - Last Filed: 04/24/18 13:56> Date of Encounter: 04/24/18 - Assessment and plan (1) Pyelonephritis Current Visit: Yes Status: Acute (2) Obstructive uropathy Current Visit: Yes Status: Acute (3) Urolithiasis Current Visit: Yes Status: Acute Qualifiers: Urinary calculus location: ureter Qualified Code(s): N20.1 - Calculus of ureter (4) DVT prophylaxis Current Visit: Yes Status: Acute - Time Spent With Patient Total time spent is greater than 50% in coordination of care (as documented) at patient's floor/unit and/or counseling patient: - Constitutional Vitals: Temp Pulse Resp BP Pulse Ox 98.3 F 134 18 165/96 98 04/24/18 12:51 04/24/18 12:51 04/24/18 12:51 04/24/18 12:51 04/24/18 12:51 Internal Medicine: Result - Labs CBC & Chem 7: 04/24/18 04:58 04/24/18 04:58 Labs: Short CBC 04/24/18 Range/Units 04:58 WBC 12.0 H (4.3-11.1) K/mcL Hgb 12.9 (11.5-15.4) g/dL Hct 39.1 (35.3-44.9) % Plt Count 446 H (140-400) K/mcL Neutrophils # 9.7 H (1.6-8.9) K/mcL BMP 04/24/18 04:58 Sodium 139 Potassium 4.5 Chloride 109 H Carbon Dioxide 18 L BUN 4 L Creatinine 0.66 Glucose 133 H Calcium 9.1 - ABG Interpretation ABG results: PT/INR, D-dimer PT 11.7 Seconds (9.4-12.1) 04/23/18 00:36 - Attending Attestation I examined this patient and my medical decision-making was reviewed with the Resident Physician Dr. Valiente. I agree with the documented findings, disposition and treatment plan as described except to the extent set forth below. Ms. Castillo is a 27 year old female with recurrent UTI, Nephrolithiasis pt presented to [facility] ER with worsening Rt flank pain and Fever, chills. She does have obstructive uropathy with 4mm Rt distal ureter calculi and UTI too. So pt was transferred to our hospital for further care. She had cystoscopy with ureter stent placement.. Pt still c/o rt flank pain Gen: A, A, O x3 Chest: Diminished BS Heart: S1S+ Tachycardia Back : Rt CVA tenderness a/p 1. Sepsis 2. UTI 3. Pyelonephrtitis 4. Obstructive uropathy 5. Rt ureter cacluli IV fluids Analgesics Empirical abx s/p stent placement urine cx no growth here will f/u on Urine cx from [facility] 6. Uncontrolled HTN due to pain cont home meds also added Hydralazine PRN
[2018-04-24] MEDS: Ondansetron 4 MG/2 ML VIAL IVP PRN (17:24)
[2018-04-24] MEDS ORDERED: Sennosides/Docusate Sodium TABLET PO PRN (18:09)
[2018-04-24] MEDS: Famotidine 20 MG TABLET PO SCH (21:14)
[2018-04-24] MEDS: Ringers Solution, Lactated 1,000 ML IVC SCH (21:14)
[2018-04-25] MEDS: *HR* OxyCODONE Immed Rel 5 MG TABLET PO PRN ×5 (02:13→19:34)
[2018-04-25] MEDS: Ondansetron 4 MG/2 ML VIAL IVP PRN ×3 (02:13→19:34)
[2018-04-25 05:02] LABS: Basophils % 0.2 %; Eosinophils % 0.2 %; Hemoglobin 11.9 g/dL (11.5-15.4); Immature Granulocytes % 0.3 % (0-4); Lymphocytes # 3.3 K/mcL (0.6-4.6); Lymphocytes % 24.6 %; Mean Corpuscular HGB Conc 32.2 g/dL (31.6-35.5); Mean Corpuscular Hemoglobin 29.7 pg (28.0-33.3); Mean Corpuscular Volume 92.3 fL (83.0-100.0); Mean Platelet Volume 9.8 fL (9.4-12.4); Monocytes # 0.9 K/mcL (0.0-1.3); Monocytes % 6.9 %; Platelet Count 394 K/mcL (140-400); Red Blood Count 4.01 M/mcL (3.82-4.97); Red Cell Distribution Width 15.1 % (11.5-14.5); Segmented Neutrophils % 67.8 %
[2018-04-25 05:27] LABS: BUN/Creatinine Ratio 8 (6-26); Blood Urea Nitrogen 5 mg/dL (6-20); Calcium 8.5 mg/dL (8.6-10.3); Carbon Dioxide 22 mEq/L (23-29); Chloride 106 mEq/L (98-107); Glucose 106 mg/dL (70-105); Magnesium 1.9 mg/dL (1.6-2.6); Osmolality,Calculated 284 (280-300); Potassium 3.5 mEq/L (3.5-5.1); Sodium 138 mEq/L (136-145); eGFR For African Americans > 60 (> 60); eGFR For Non-African Americans > 60 (> 60)
[2018-04-25] MEDS: Ringers Solution, Lactated 1,000 ML IVC SCH ×2 (06:10→19:52)
[2018-04-25] MEDS: *HR* Promethazine 25 MG/ML VIAL IVP PRN ×3 (06:11→22:12)
[2018-04-25] MEDS: *HR* Heparin 5,000 UNIT/ML VIAL SQ SCH ×3 (06:17→21:15)
--- NOTE | 2018-04-25 08:08 | Urology Progress Note ---
Date of Encounter: 04/25/18 Time of Encounter: 08:04 - Assessment and Plan (1) UTI (urinary tract infection) Current Visit: Yes Status: Acute Assessment and plan: 27 year old woman s/p right ureteral stent placement. Doing okay today. 1. Will arrange for definitive right ureteroscopy, laser lithotripsy, and stent placement as an outpatient. 2. I called [facility] in [place]. Her urine culture grew greater than 100,000 gram-positive rods and no further sensitivities were obtained as the assumption was for lactobacillus growing out. We could consider use of Bactrim to treat any possible urinary tract infection if desired by the primary team to avoid her other allergies. Qualifiers: Urinary tract infection type: acute cystitis Hematuria presence: without hematuria Qualified Code(s): N30.00 - Acute cystitis without hematuria (2) Urolithiasis Current Visit: Yes Status: Acute Qualifiers: Urinary calculus location: ureter Qualified Code(s): N20.1 - Calculus of ureter Progress Note Narrative: POD #2 s/p cystoscopy and right ureteral stent placement. She is having some left hand swelling. Pain is adequately controlled. Nausea is okay today. Objective Initial Vital Signs Temp Pulse Resp BP Pulse Ox 98.4 F 131 18 131/87 100 04/22/18 23:31 04/22/18 23:31 04/22/18 23:31 04/22/18 23:31 04/22/18 23:31 - General physical appearance Present: well developed, well nourished, no distress - Respiratory Present: normal respiratory effort - Abdomen Present: soft - Musculoskeletal Present: other (left hand appears edematous) - Labs 04/25/18 04:40 04/25/18 04:40 Diabetes panel 04/25/18 Range/Units 04:40 Sodium 138 (136-145) mEq/L Potassium 3.5 (3.5-5.1) mEq/L Chloride 106 (98-107) mEq/L Carbon Dioxide 22 L (23-29) mEq/L BUN 5 L (6-20) mg/dL Creatinine 0.64 (0.60-1.20) mg/dL Glucose 106 H (70-105) mg/dL Calcium 8.5 L (8.6-10.3) mg/dL Calcium panel 04/25/18 Range/Units 04:40 Calcium 8.5 L (8.6-10.3) mg/dL Pituitary panel 04/25/18 Range/Units 04:40 Sodium 138 (136-145) mEq/L Potassium 3.5 (3.5-5.1) mEq/L Chloride 106 (98-107) mEq/L Carbon Dioxide 22 L (23-29) mEq/L BUN 5 L (6-20) mg/dL Creatinine 0.64 (0.60-1.20) mg/dL Glucose 106 H (70-105) mg/dL Calcium 8.5 L (8.6-10.3) mg/dL Adrenal panel 04/25/18 Range/Units 04:40 Sodium 138 (136-145) mEq/L Potassium 3.5 (3.5-5.1) mEq/L Chloride 106 (98-107) mEq/L Carbon Dioxide 22 L (23-29) mEq/L BUN 5 L (6-20) mg/dL Creatinine 0.64 (0.60-1.20) mg/dL Glucose 106 H (70-105) mg/dL Calcium 8.5 L (8.6-10.3) mg/dL - VTE Documentation of Mechanical Device: Intermittent pneumatic compression device Consult Discharge Plan - Plan Referrals: Rima Lam [Primary Care Provider] -
[2018-04-25] MEDS: Ertapenem 1,000 MG in 0.9 % Sodium Chloride Mini Bag 100 ML IVPB SCH ×2 (09:30→23:06)
--- NOTE | 2018-04-25 11:30 | Internal Med Progress Note ---
<Pedro Pablo Fontana - Last Filed: 04/25/18 13:14> Date of Encounter: 04/25/18 Time of Encounter: 08:35 - Assessment and plan (1) Pyelonephritis Current Visit: Yes Status: Acute Assessment and plan: Likely secondary to obstructive uropathy in the setting of kidney stone. Status post cystoscopy with ureteral stent placement on 04/23/18. Still reporting significant pain, attempting pain management with oral pain medication. Blood and urine cultures no growth to date. [facility] urine culture reported as growing greater than 100,000 gram-positive rods and no further sensitivities were obtained as the assumption was for lactobacillus growing out. Continue ertapenem for now given multiple antibiotic allergies (could consider bactrim). Encouraging patient to be more active today and get up from bed. (2) Obstructive uropathy Current Visit: Yes Status: Acute Assessment and plan: Status post cystoscopy with stent placement. Renal function remains normal. We will continue to monitor daily. (3) Urolithiasis Current Visit: Yes Status: Acute Assessment and plan: Status post cystoscopy with stent placement. Urology has been following; plan for definitive right ureteroscopy, laser lithotripsy, and stent placement as an outpatient. Qualifiers: Urinary calculus location: ureter Qualified Code(s): N20.1 - Calculus of ureter (4) DVT prophylaxis Current Visit: Yes Status: Acute Assessment and plan: Heparin SQ. - Time Spent With Patient Total time spent is greater than 50% in coordination of care (as documented) at patient's floor/unit and/or counseling patient: - Subjective Interval history: Patient seen and examined while lying in bed, initially sleeping, but easliy arousable. Patient states medications helping but still experiencing significant back pain/pressure. She states she has been getting up to go to the restroom without issue. Patient does not appear to be toxic or in acute distress. Denies chest pain, dyspnea, vomiting; admits nausea and back pain. - Constitutional Vitals: Temp Pulse Resp BP Pulse Ox 98.4 F 119 14 165/92 93 04/25/18 07:42 04/25/18 07:42 04/25/18 07:42 04/25/18 07:42 04/25/18 07:42 General appearance: Present: cooperative, A&O X 3, pleasant, no acute distress, answers questions appropriately - Head Head exam: Present: atraumatic, normal inspection, normocephalic - Eye Eye exam: Present: EOMI, normal appearance - ENT ENT exam: Present: mucous membranes dry - Neck Neck exam general surgery: Present: full ROM, normal inspection - Respiratory Respiratory exam: Present: CTAB. Absent: respiratory distress, rhonchi, stridor , wheezes - Cardiovascular Cardiovascular exam: Present: +S1, +S2, tachycardia. Absent: gallop, rubs - GI/Abdominal GI/Abdominal exam: Present: normal bowel sounds, soft, tenderness (diffuse tenderness, notes Right flank worst.). Absent: distended, firm, guarding - Neurological Exam Neurological exam: Present: alert, oriented X3, no focal deficits. Absent: speech deficit - Skin Skin exam: Present: intact, normal color, warm. Absent: rash Internal Medicine: Result - Labs CBC & Chem 7: 04/25/18 04:40 04/25/18 04:40 Labs: Short CBC 04/25/18 Range/Units 04:40 WBC 13.2 H (4.3-11.1) K/mcL Hgb 11.9 (11.5-15.4) g/dL Hct 37.0 (35.3-44.9) % Plt Count 394 (140-400) K/mcL Neutrophils # 9.0 H (1.6-8.9) K/mcL BMP 04/25/18 04:40 Sodium 138 Potassium 3.5 Chloride 106 Carbon Dioxide 22 L BUN 5 L Creatinine 0.64 Glucose 106 H Calcium 8.5 L - ABG Interpretation ABG results: PT/INR, D-dimer PT 11.7 Seconds (9.4-12.1) 04/23/18 00:36 - VTE Documentation of Mechanical Device: Intermittent pneumatic compression device Consult Discharge Plan - Plan Referrals: Rima Lam [Primary Care Provider] - 05/09/18 1:00 pm <Andria Evans - Last Filed: 04/25/18 17:58> Date of Encounter: 04/25/18 - Assessment and plan (1) Pyelonephritis Current Visit: Yes Status: Acute (2) Obstructive uropathy Current Visit: Yes Status: Acute (3) Urolithiasis Current Visit: Yes Status: Acute Qualifiers: Urinary calculus location: ureter Qualified Code(s): N20.1 - Calculus of ureter (4) DVT prophylaxis Current Visit: Yes Status: Acute - Time Spent With Patient Total time spent is greater than 50% in coordination of care (as documented) at patient's floor/unit and/or counseling patient: - Constitutional Vitals: Temp Pulse Resp BP Pulse Ox 98.4 F 137 14 137/86 96 04/25/18 15:42 04/25/18 15:42 04/25/18 15:42 04/25/18 15:42 04/25/18 15:42 Internal Medicine: Result - Labs CBC & Chem 7: 04/25/18 04:40 04/25/18 04:40 Labs: Short CBC 04/25/18 Range/Units 04:40 WBC 13.2 H (4.3-11.1) K/mcL Hgb 11.9 (11.5-15.4) g/dL Hct 37.0 (35.3-44.9) % Plt Count 394 (140-400) K/mcL Neutrophils # 9.0 H (1.6-8.9) K/mcL BMP 04/25/18 04:40 Sodium 138 Potassium 3.5 Chloride 106 Carbon Dioxide 22 L BUN 5 L Creatinine 0.64 Glucose 106 H Calcium 8.5 L - ABG Interpretation ABG results: PT/INR, D-dimer PT 11.7 Seconds (9.4-12.1) 04/23/18 00:36 - Attending Attestation I examined this patient and my medical decision-making was reviewed with the Resident Physician Dr. Fontana. I agree with the documented findings, disposition and treatment plan as described except to the extent set forth below. Ms. Castillo is a 27 year old female with recurrent UTI, Nephrolithiasis pt presented to [facility] ER with worsening Rt flank pain and Fever, chills. She does have obstructive uropathy with 4mm Rt distal ureter calculi and UTI too. So pt was transferred to our hospital for further care. She had cystoscopy with ureter stent placement.. Pt states she fels little better today Gen: A, A, O x3 Chest: Diminished BS Heart: S1S+ Tachycardia Back : Rt CVA tenderness a/p 1. Sepsis 2. UTI 3. Pyelonephrtitis 4. Obstructive uropathy 5. Rt ureter cacluli Improving d/c IV fluids Analgesics Empirical abx s/p stent placement urine cx no growth here will f/u on Urine cx from [facility] 6. Uncontrolled HTN due to pain cont home meds also added Hydralazine PRN 7. Sinus tachycardia.. by reviewing pt's home med Verapamil.. pt might have chronic tachycardia so d/c Verapamil , added Metoprolol
[2018-04-25] MEDS: *HR* Metoprolol 5 MG/5 ML VIAL IVP PRN (19:35)
[2018-04-25] MEDS: 0.9 % Sodium Chloride 1,000 ML IVC SCH (19:52)
[2018-04-25] MEDS: Famotidine 20 MG TABLET PO SCH (21:16)
[2018-04-26] MEDS: *HR* OxyCODONE Immed Rel 5 MG TABLET PO PRN ×4 (04:49→20:41)
[2018-04-26] MEDS: *HR* Promethazine 25 MG/ML VIAL IVP PRN ×4 (04:58→23:50)
[2018-04-26] MEDS: *HR* Heparin 5,000 UNIT/ML VIAL SQ SCH ×3 (05:00→20:42)
[2018-04-26 07:45] LABS: Basophils % 0.5 %; Eosinophils # 0.1 K/mcL (0.0-0.6); Eosinophils % 1.5 %; Hematocrit 38.4 % (35.3-44.9); Hemoglobin 12.6 g/dL (11.5-15.4); Immature Granulocytes % 0.3 % (0-4); Lymphocytes # 2.7 K/mcL (0.6-4.6); Lymphocytes % 30.6 %; Mean Corpuscular HGB Conc 32.8 g/dL (31.6-35.5); Mean Corpuscular Hemoglobin 30.1 pg (28.0-33.3); Mean Corpuscular Volume 91.9 fL (83.0-100.0); Mean Platelet Volume 10.1 fL (9.4-12.4); Monocytes # 0.7 K/mcL (0.0-1.3); Monocytes % 7.8 %; Neutrophils # 5.3 K/mcL (1.6-8.9); Platelet Count 370 K/mcL (140-400); Red Blood Count 4.18 M/mcL (3.82-4.97); Red Cell Distribution Width 14.7 % (11.5-14.5); Segmented Neutrophils % 59.3 %
[2018-04-26 08:07] LABS: BUN/Creatinine Ratio 9 (6-26); Blood Urea Nitrogen 6 mg/dL (6-20); Calcium 8.6 mg/dL (8.6-10.3); Carbon Dioxide 23 mEq/L (23-29); Chloride 105 mEq/L (98-107); Glucose 109 mg/dL (70-105); Osmolality,Calculated 288 (280-300); Potassium 3.6 mEq/L (3.5-5.1); Sodium 140 mEq/L (136-145); eGFR For African Americans > 60 (> 60); eGFR For Non-African Americans > 60 (> 60)
[2018-04-26] MEDS: Ertapenem 1,000 MG in 0.9 % Sodium Chloride Mini Bag 100 ML IVPB SCH (08:10)
[2018-04-26] MEDS: Sulfamethoxazole/Trimeth DS 1 EACH TABLET PO SCH ×2 (12:58→20:42)
--- NOTE | 2018-04-26 13:19 | Internal Med Progress Note ---
<Pedro Pablo Fontana - Last Filed: 04/26/18 15:29> Date of Encounter: 04/26/18 Time of Encounter: 08:55 - Assessment and plan (1) Pyelonephritis Current Visit: Yes Status: Acute Assessment and plan: Likely secondary to obstructive uropathy in the setting of kidney stone. Status post cystoscopy with ureteral stent placement on 04/23/18. Still reporting significant pain, attempting pain management with oral pain medication ,patient notes some improvement. Blood and urine cultures from [facility] with no growth to date. [facility] urine culture reported as growing greater than 100,000 gram-positive rods and no further sensitivities were obtained as the assumption was for lactobacillus growing out. Plan today to discontinue ertapenem and switch to bactrim due to patient's many drug allergies. Encouraging patient to be more active today and get up from bed. Consider possible discharge home tomorrow if patient medically stable and pain reasonably controlled. (2) Obstructive uropathy Current Visit: Yes Status: Acute Assessment and plan: Status post cystoscopy with stent placement. Renal function remains normal. We will continue to monitor daily. (3) Urolithiasis Current Visit: Yes Status: Acute Assessment and plan: Status post cystoscopy with stent placement. Urology has been following; plan for definitive right ureteroscopy, laser lithotripsy, and stent placement as an outpatient. Qualifiers: Urinary calculus location: ureter Qualified Code(s): N20.1 - Calculus of ureter (4) Tachycardia Current Visit: Yes Status: Chronic Assessment and plan: Sinus tachycardia Likely chronic based on home medication of verapamil. Dc'd verapamil, started metoprolol. May need to adjust dosage base on HR. (5) DVT prophylaxis Current Visit: Yes Status: Acute Assessment and plan: Heparin SQ. (6) Uncontrolled hypertension Current Visit: Yes Status: Acute Assessment and plan: Likely worsened due to pain. PO Metoprolol and IV hydralazine started. Continue to monitor and adjust as needed. - Time Spent With Patient Total time spent is greater than 50% in coordination of care (as documented) at patient's floor/unit and/or counseling patient: - Subjective Interval history: Patient seen and examined while lying in bed, initially sleeping, but easliy arousable. Patient states pain medications help some, still admits persistent back pain/pressure. Patient does not appear to be toxic or in acute distress. Denies chest pain, dyspnea, vomiting; admits nausea and back pain. She states she rather laying around in pain at home. Patient's HR remains tachy, 104-151. - Constitutional Vitals: Temp Pulse Resp BP Pulse Ox 99.3 F 124 18 126/81 93 04/26/18 11:34 04/26/18 11:34 04/26/18 11:34 04/26/18 11:34 04/26/18 11:34 General appearance: Present: cooperative, A&O X 3, pleasant, no acute distress, answers questions appropriately - Head Head exam: Present: atraumatic, normal inspection, normocephalic - Eye Eye exam: Present: EOMI, normal appearance - ENT ENT exam: Present: mucous membranes moist - Neck Neck exam general surgery: Present: full ROM, normal inspection - Respiratory Respiratory exam: Present: decreased breath sounds, CTAB. Absent: respiratory distress, wheezes - Cardiovascular Cardiovascular exam: Present: +S1, +S2, tachycardia. Absent: gallop, irregular rhythm, rubs - GI/Abdominal GI/Abdominal exam: Present: normal bowel sounds, soft, tenderness (Right flank and CVA). Absent: distended, guarding - Extremities Exam Extremities exam: Present: warm. Absent: cyanotic, pedal edema, tenderness - Neurological Exam Neurological exam: Present: alert, oriented X3. Absent: speech deficit - Skin Skin exam: Present: dry, intact, normal color, warm. Absent: rash Internal Medicine: Result - Labs CBC & Chem 7: 04/26/18 06:50 04/26/18 06:50 Labs: Short CBC 04/26/18 Range/Units 06:50 WBC 8.9 (4.3-11.1) K/mcL Hgb 12.6 (11.5-15.4) g/dL Hct 38.4 (35.3-44.9) % Plt Count 370 (140-400) K/mcL Neutrophils # 5.3 (1.6-8.9) K/mcL BMP 04/26/18 06:50 Sodium 140 Potassium 3.6 Chloride 105 Carbon Dioxide 23 BUN 6 Creatinine 0.64 Glucose 109 H Calcium 8.6 - ABG Interpretation ABG results: PT/INR, D-dimer PT 11.7 Seconds (9.4-12.1) 04/23/18 00:36 - VTE Documentation of Mechanical Device: Intermittent pneumatic compression device Consult Discharge Plan - Plan Referrals: Rima Lam [Primary Care Provider] - 05/09/18 1:00 pm <Andria Evans - Last Filed: 04/26/18 16:56> Date of Encounter: 04/26/18 - Assessment and plan (1) Pyelonephritis Current Visit: Yes Status: Acute (2) Obstructive uropathy Current Visit: Yes Status: Acute (3) Urolithiasis Current Visit: Yes Status: Acute Qualifiers: Urinary calculus location: ureter Qualified Code(s): N20.1 - Calculus of ureter (4) DVT prophylaxis Current Visit: Yes Status: Acute (5) Tachycardia Current Visit: Yes Status: Chronic (6) Uncontrolled hypertension Current Visit: Yes Status: Acute - Time Spent With Patient Total time spent is greater than 50% in coordination of care (as documented) at patient's floor/unit and/or counseling patient: - Constitutional Vitals: Temp Pulse Resp BP Pulse Ox 98.0 F 112 15 132/83 94 04/26/18 15:40 04/26/18 15:40 04/26/18 15:40 04/26/18 15:40 04/26/18 15:40 Internal Medicine: Result - Labs CBC & Chem 7: 04/26/18 06:50 04/26/18 06:50 Labs: Short CBC 04/26/18 Range/Units 06:50 WBC 8.9 (4.3-11.1) K/mcL Hgb 12.6 (11.5-15.4) g/dL Hct 38.4 (35.3-44.9) % Plt Count 370 (140-400) K/mcL Neutrophils # 5.3 (1.6-8.9) K/mcL BMP 04/26/18 06:50 Sodium 140 Potassium 3.6 Chloride 105 Carbon Dioxide 23 BUN 6 Creatinine 0.64 Glucose 109 H Calcium 8.6 - ABG Interpretation ABG results: PT/INR, D-dimer PT 11.7 Seconds (9.4-12.1) 04/23/18 00:36 - Attending Attestation I examined this patient and my medical decision-making was reviewed with the Resident Physician Dr. Fontana. I agree with the documented findings, disposition and treatment plan as described except to the extent set forth below. Ms. Castillo is a 27 year old female with recurrent UTI, Nephrolithiasis pt presented to [facility] ER with worsening Rt flank pain and Fever, chills. She does have obstructive uropathy with 4mm Rt distal ureter calculi and UTI too. So pt was transferred to our hospital for further care. She had cystoscopy with ureter stent placement.. Pt states she feels little better today. No events over night Gen: A, A, O x3 Chest: Diminished BS Heart: S1S+ Tachycardia Back : Improved Rt CVA tenderness a/p 1. Sepsis 2. UTI 3. Pyelonephrtitis 4. Obstructive uropathy 5. Rt ureter cacluli Improving Analgesics PRN s/p stent placement urine cx no growth here Urine cx from [facility] growing lacobacilli switched to PO bactrim 6. Uncontrolled HTN due to pain cont home meds also added Hydralazine PRN 7. Sinus tachycardia.. Improving Inc Metoprolol to 50mg BID Pt stated she was on Verapamil for her Migraine prophylaxis, however since pt does need B regan for tachycardia, d/c Verapamil to avoid AV conduction block
[2018-04-26] MEDS: Ondansetron 4 MG/2 ML VIAL IVP PRN (14:14)
[2018-04-26] MEDS: Famotidine 20 MG TABLET PO SCH (20:41)
[2018-04-26] MEDS: Lactobacillus 1 EACH CAP.SPRINK PO SCH (21:43)
[2018-04-26] MEDS: *HR* Metoprolol 5 MG/5 ML VIAL IVP PRN (23:35)
[2018-04-27] MEDS: *HR* Heparin 5,000 UNIT/ML VIAL SQ SCH (05:56)
[2018-04-27] MEDS: *HR* OxyCODONE Immed Rel 5 MG TABLET PO PRN ×2 (05:56→10:26)
[2018-04-27] MEDS: *HR* Promethazine 25 MG/ML VIAL IVP PRN (05:57)
[2018-04-27 06:31] LABS: Basophils % 0.3 %; Eosinophils # 0.3 K/mcL (0.0-0.6); Eosinophils % 2.7 %; Hematocrit 40.8 % (35.3-44.9); Hemoglobin 13.1 g/dL (11.5-15.4); Immature Granulocytes % 0.6 % (0-4); Lymphocytes # 3.5 K/mcL (0.6-4.6); Lymphocytes % 30.5 %; Mean Corpuscular HGB Conc 32.1 g/dL (31.6-35.5); Mean Corpuscular Hemoglobin 29.9 pg (28.0-33.3); Mean Corpuscular Volume 93.2 fL (83.0-100.0); Mean Platelet Volume 10.6 fL (9.4-12.4); Monocytes # 0.9 K/mcL (0.0-1.3); Monocytes % 7.3 %; Neutrophils # 6.8 K/mcL (1.6-8.9); Nucleated Red Blood Cells 0.3 /100 WBC (0); Platelet Count 366 K/mcL (140-400); Red Blood Count 4.38 M/mcL (3.82-4.97); Red Cell Distribution Width 14.6 % (11.5-14.5); Segmented Neutrophils % 58.6 %
[2018-04-27 06:43] LABS: BUN/Creatinine Ratio 12 (6-26); Blood Urea Nitrogen 9 mg/dL (6-20); Calcium 8.8 mg/dL (8.6-10.3); Carbon Dioxide 23 mEq/L (23-29); Chloride 106 mEq/L (98-107); Glucose 103 mg/dL (70-105); Osmolality,Calculated 289 (280-300); Potassium 3.6 mEq/L (3.5-5.1); Sodium 140 mEq/L (136-145); eGFR For African Americans > 60 (> 60); eGFR For Non-African Americans > 60 (> 60)
[2018-04-27 07:53] VITALS: BP 134/78
[2018-04-27] MEDS: Sulfamethoxazole/Trimeth DS 1 EACH TABLET PO SCH (08:34)
[2018-04-27] MEDS: Lactobacillus 1 EACH CAP.SPRINK PO SCH (08:34)
--- NOTE | 2018-04-27 09:41 | Discharge Summary ---
<Daniel Valiente - Last Filed: 04/27/18 09:36> - NOTES TO OUTPATIENT PROVIDER Notes to Outpatient Provider: Please stop the patient's verapamil and added on metoprolol for consistent sinus tachycardia. She felt that the verapamil was not helping with her migraine prevention Orders not resulted at time of discharge: Pending orders 04/22/18 23:46 Culture,Blood [BC] Stat 04/23/18 06:00 ECG 12 lead ECG [ECG] AM 0600 04/28/18 04:00 Basic Metabolic Panel AM 0400 Complete Blood Count [HEME] AM 0400 Magnesium AM 0400 Date of Encounter: 04/27/18 Time of Encounter: 09:37 - Discharge Diagnosis (1) Pyelonephritis Priority: Primary Status: Acute (2) Obstructive uropathy Priority: Primary Status: Resolved (3) Urolithiasis Priority: Primary Status: Acute Qualifiers: Urinary calculus location: ureter Qualified Code(s): N20.1 - Calculus of ureter (4) Tachycardia Priority: Secondary Status: Chronic (5) Uncontrolled hypertension Priority: Secondary Status: Chronic Hospital course: Ms. Castillo is a 27 year old female with history of hypertension, a recurrent renal stone presented from [facility] with flank pain, dysuria. CT scan revealed obstructing ureteral stone with likely pyelonephritis. Patient was transferred to [facility] and patient underwent cystoscopy with stent placement. Given her multiple allergies patient was treated with ertapenem for the first 4 days and then transitioned to oral Bactrim. Postoperatively the patient had significant pain that was difficult to control. This gradually improved and she stated her pain was under better control the time of discharge. Patient was also noted to be persistently tachycardic and hypertensive, likely related to pain, this had improved throughout her stay. Patient will be discharged home in stable condition. Discharge discussed with: patient, nurse - Time Spent with Patient Total time spent providing and/or coordinating discharge services: - Discharge Medications Prescriptions: OxyCODONE/APAP 10/325 [Percocet 10/325 MG] 1 each PO Q6HR PRN 5 Days #20 tablet PRN Reason: Pain Promethazine [Phenergan] 25 mg PO Q6HR PRN #20 tablet PRN Reason: Nausea And Vomiting Metoprolol [Lopressor] 50 mg PO BID #60 tablet Sulfamethoxazole/Trimeth DS [Bactrim Ds] 1 each PO BID #9 tablet Home Medications: DiphenhydraMINE [Benadryl] 25 mg PO HS 04/22/18 [History] Losartan Potassium [Cozaar] 50 mg PO DAILY 04/22/18 [History] Melatonin 10 mg PO HS 04/22/18 [History] Omeprazole [PriLOSEC] 40 mg PO DAILY 04/22/18 [History] Ranitidine HCl [Acid Mosquito Sprayer] 150 mg PO BID 04/22/18 [History] Venlafaxine XR (24 HR) [Effexor Xr] 37.5 mg PO DAILY 04/22/18 [History] Venlafaxine XR (24 HR) [Effexor Xr] 150 mg PO DAILY 04/22/18 [History] Tizanidine HCl 2 mg PO TID 04/23/18 [History] Verapamil HCl [Verapamil ER] 180 mg PO DAILY 04/23/18 [History] Metoprolol [Lopressor] 50 mg PO BID #60 tablet 04/27/18 [Rx] OxyCODONE/APAP 10/325 [Percocet 10/325 MG] 1 each PO Q6HR PRN 5 Days #20 tablet 04/27/18 [Rx] Promethazine [Phenergan] 25 mg PO Q6HR PRN #20 tablet 04/27/18 [Rx] Sulfamethoxazole/Trimeth DS [Bactrim Ds] 1 each PO BID #9 tablet 04/27/18 [Rx] Allergies/Adverse Reactions: 3 Allergy/AdvReac Type Severity Reaction Status Date / Time cephalexin [From Keflex] Allergy Hives Verified 04/22/18 23:15 ciprofloxacin [From Cipro] Allergy Hives Verified 04/22/18 23:15 ketorolac [From Toradol] Allergy Hives Verified 04/22/18 23:15 levofloxacin [From Levaquin] Allergy Hives Verified 04/22/18 23:15 morphine Allergy Hives Verified 04/22/18 23:15 Penicillins Allergy Hives Verified 04/22/18 23:15 Date of admission: 04/22/18 23:46 Primary care physician: Rima Lam Discharging clinician: Daniel Valiente Anticipated date of discharge: 04/27/18 - Constitutional Vitals: Temp Pulse Resp BP Pulse Ox 99.7 F H 115 17 134/78 93 04/27/18 07:51 04/27/18 07:51 04/27/18 07:51 04/27/18 07:51 04/27/18 07:51 General appearance: Present: cooperative, A&O X 3, pleasant, no acute distress, answers questions appropriately - Respiratory Respiratory exam: Present: CTAB. Absent: rales, rhonchi, wheezes - Cardiovascular Cardiovascular exam: Present: tachycardia. Absent: gallop, irregular rhythm, rubs, systolic murmur - GI/Abdominal GI/Abdominal exam: Present: normal bowel sounds, soft. Absent: distended, tenderness - Extremities Exam Extremities exam: Present: warm. Absent: pedal edema, tenderness - Neurological Exam Neurological exam: Present: alert, CN II-XII intact, oriented X3, no focal deficits - Patient Status Disposition: Home, Self-Care Functional capacity at discharge: independent ambulation Overall status at discharge: patient is progressing back to baseline - Discharge Instructions Instructions: Sulfamethoxazole/Trimethoprim (By mouth), Metoprolol (By mouth), Oxycodone/Acetaminophen (By mouth), Promethazine (By mouth), Urinary Tract Infection in Women (DC), Acute Pyelonephritis (DC), Acute Pyelonephritis (GEN) Follow Up With: Rima Lam [Primary Care Provider] - 05/09/18 1:00 pm Lior Shaffer MD [Partnered Physician] - 05/24/18 2:15 pm () Additional Instructions: Please follow-up with your primary care provider as scheduled. Please follow-up with urology as scheduled. Please use the pain medication and nausea medication as needed. Please discontinue verapamil and start metoprolol. Please resume your other home medications. Please take your antibiotic until completed. Please return for new or worsening symptoms. - Diet and Activity Activity: increase activity as tolerated Diet: advance to your usual diet - VTE Documentation of Mechanical Device: Intermittent pneumatic compression device <Andria Evans - Last Filed: 04/27/18 16:41> Orders not resulted at time of discharge: Pending orders 04/22/18 23:46 Culture,Blood [BC] Stat 04/23/18 06:00 ECG 12 lead ECG [ECG] AM 0600 Date of Encounter: 04/27/18 - Discharge Diagnosis (1) Pyelonephritis Status: Acute (2) Obstructive uropathy Status: Resolved (3) Urolithiasis Status: Acute Qualifiers: Urinary calculus location: ureter Qualified Code(s): N20.1 - Calculus of ureter (4) Tachycardia Status: Chronic (5) Uncontrolled hypertension Status: Chronic Hospital course: Ms. Castillo is a 27 year old female - Time Spent with Patient Total time spent providing and/or coordinating discharge services: Date of admission: 04/22/18 23:46 Primary care physician: Rima Lam - Constitutional Vitals: Temp Pulse Resp BP Pulse Ox 99.7 F H 115 17 134/78 93 04/27/18 07:51 04/27/18 07:51 04/27/18 07:51 04/27/18 07:51 04/27/18 07:51 - Attending Attestation I examined this patient and my medical decision-making was reviewed with the Resident Physician Dr. Fontana. I agree with the documented findings, disposition and treatment plan as described except to the extent set forth below. Ms. Castillo is a 27 year old female with recurrent UTI, Nephrolithiasis pt presented to [facility] ER with worsening Rt flank pain and Fever, chills. She does have obstructive uropathy with 4mm Rt distal ureter calculi and UTI too. So pt was transferred to our hospital for further care. She had cystoscopy with ureter stent placement.. Pt states she feels little better today. No events over night Gen: A, A, O x3 Chest: Diminished BS Heart: S1S+ RRR Back : Improved Rt CVA tenderness a/p 1. Sepsis 2. UTI 3. Pyelonephrtitis 4. Obstructive uropathy 5. Rt ureter cacluli Improving Analgesics PRN s/p stent placement urine cx no growth here Urine cx from [facility] growing lacobacilli switched to PO bactrim 6. HTN cont home meds also added Hydralazine PRN 7. Sinus tachycardia.. Improved with BB Metoprolol to 50mg BID Pt stated she was on Verapamil for her Migraine prophylaxis, however since pt does need B regan for tachycardia, d/c Verapamil to avoid AV conduction block Medically stable to d/c home
[2018-04-27] MEDS: Ondansetron 4 MG/2 ML VIAL IVP PRN (10:26)
== END 2018-04-27 13:08 | disposition home or self-care (01) | DRG 720 ==
LOC: 3BNU
PROVIDERS: ADMIT Pediatrics; ATTEND Pediatrics

== ENCOUNTER 2020-09-13 17:00 | Observation (INO) ==
[2020-09-13] MEDS ORDERED: Naloxone 0.4 MG/ML INJ IVP PRN (20:38)
[2020-09-13] MEDS ORDERED: Acetaminophen 325 MG TABLET PO PRN (20:43)
[2020-09-13] MEDS ORDERED: *HR* HYDROmorphone (PF) 1 MG/ML SYRINGE IVP PRN (20:55)
[2020-09-13] MEDS ORDERED: *HR* LORazepam 2 MG/ML VIAL IVP ONE (21:07)
[2020-09-13] MEDS: Ringers Solution, Lactated 1,000 ML IVC SCH (21:34)
[2020-09-13] MEDS: Ondansetron 4 MG/2 ML VIAL IVP PRN (21:35)
[2020-09-13] MEDS: Melatonin 3 MG TABLET PO SCH (22:31)
[2020-09-13] MEDS: tiZANidine 4 MG TABLET PO SCH (22:31)
[2020-09-14 00:50] LABS: Bacteria,Urine Few per hpf (None-Few); Bilirubin,Urine Negative (Negative); Blood,Urine Small (Negative); Clarity,Urine Clear (Clear); Color,Urine Yellow (Yellow); Glucose,Urine (UA) 50 mg/dL (Normal); Ketones,Urine Negative (Negative); Leukocyte Esterase,Urine Large (Negative); Mucus,Urine Few per lpf (None-Few); Nitrite,Urine Negative (Negative); PH,Urine 5.5 pH Units (5.0-8.0); Protein,Urine Trace mg/dL (Neg-Trace); Specific Gravity,Urine 1.022 (1.010-1.025); Squamous Epithelial Cell,Urine Few per hpf (None-Few); Urobilinogen,Urine Normal (Normal); WBC,Urine 50-100 per hpf (0-3)
[2020-09-14] MEDS: Prochlorperazine 10 MG/2 ML VIAL IVP PRN ×2 (01:01→17:16)
[2020-09-14] MEDS: *HR* OxyCODONE Immed Rel 5 MG TABLET PO PRN ×4 (02:04→21:03)
[2020-09-14 05:03] LABS: Adenovirus Not Detected (Not Detect); Bordetella Pertussis Not Detected (Not Detect); Chlamydophila pneumoniae Not Detected (Not Detect); Coronavirus 229E Not Detected (Not Detect); Coronavirus HKU1 Not Detected (Not Detect); Coronavirus NL63 Not Detected (Not Detect); Coronavirus OC43 Not Detected (Not Detect); Human Metapneumovirus Not Detected (Not Detect); Human Rhinovirus/Enterovirus Not Detected (Not Detect); Influenza A Subtype 2009 H1 Not Detected (Not Detect); Influenza B Not Detected (Not Detect); Mycoplasma pneumoniae Not Detected (Not Detect); Parainfluenza Virus 1 Not Detected (Not Detect); Parainfluenza Virus 2 Not Detected (Not Detect); Parainfluenza Virus 3 Not Detected (Not Detect); Parainfluenza Virus 4 Not Detected (Not Detect); Respiratory Syncytial Virus Not Detected (Not Detect); SARS-CoV-2 Not Detected (Not Detect)
[2020-09-14] MEDS: *HR* Heparin 5,000 UNIT/ML VIAL SQ SCH ×2 (05:57→17:15)
[2020-09-14] MEDS: atenoloL 50 MG TABLET PO SCH (07:51)
[2020-09-14] MEDS: *HR* HYDROcodone/Acet 5/325 mg TABLET PO PRN ×2 (07:51→17:15)
[2020-09-14] MEDS: NIFEdipine XL (24 HR) 30 MG TAB.ER.24 PO SCH (07:52)
[2020-09-14] MEDS: Ascorbic Acid 500 MG TABLET PO SCH (07:52)
[2020-09-14] MEDS: BuPROPion SR (12 HR) 100 MG TABLET PO SCH ×2 (07:53→21:04)
[2020-09-14] MEDS: Aztreonam 1,000 MG in 0.9 % Sodium Chloride Mini Bag 100 ML IVPB SCH ×4 (07:53→23:28)
[2020-09-14] MEDS: Ringers Solution, Lactated 1,000 ML IVC SCH (07:55)
[2020-09-14 08:50] LABS: BUN/Creatinine Ratio 10 (6-26); Blood Urea Nitrogen 9 mg/dL (6-20); Calcium 8.2 mg/dL (8.6-10.3); Carbon Dioxide 23 mEq/L (23-29); Chloride 104 mEq/L (98-107); Chol/HDL Ratio 3.9 (0-4.9); Cholesterol 187 mg/dL (< 200); Glucose 110 mg/dL (70-105); HDL Cholesterol 48 mg/dL (40-59); LDL Cholesterol,Calculated 111 mg/dL (< 100); Osmolality,Calculated 285 (280-300); Potassium 3.7 mEq/L (3.5-5.1); Sodium 138 mEq/L (136-145); Triglycerides 140 mg/dL (< 150); eGFR For African Americans > 60 (> 60); eGFR For Non-African Americans > 60 (> 60)
[2020-09-14 08:53] LABS: Basophils # 0.1 K/mcL (0.0-0.2); Basophils % 0.4 %; Eosinophils # 0.1 K/mcL (0.0-0.6); Eosinophils % 0.9 %; Hematocrit 36.1 % (35.3-44.9); Hemoglobin 11.4 g/dL (11.5-15.4); Immature Granulocytes % 0.7 % (0-4); Lymphocytes # 1.9 K/mcL (0.6-4.6); Lymphocytes % 15.2 %; Mean Corpuscular HGB Conc 31.6 g/dL (31.6-35.5); Mean Corpuscular Volume 101.4 fL (83.0-100.0); Mean Platelet Volume 9.8 fL (9.4-12.4); Monocytes # 1.1 K/mcL (0.0-1.3); Monocytes % 8.9 %; Neutrophils # 9.3 K/mcL (1.6-8.9); Platelet Count 271 K/mcL (140-400); Red Blood Count 3.56 M/mcL (3.82-4.97); Red Cell Distribution Width 12.6 % (11.5-14.5); Segmented Neutrophils % 73.9 %; White Blood Count 12.7 K/mcL (4.3-11.1)
[2020-09-14] MEDS ORDERED: Isovue-300 50ML VIAL ONE (09:00)
[2020-09-14] MEDS ORDERED: POTASSIUM CITRATE 1080 MG PO SCH (09:00)
[2020-09-14] MEDS ORDERED: *HR* HYDROmorphone 2 MG TABLET PO PRN (10:09)
[2020-09-14] MEDS ORDERED: *HR* HYDROmorphone (PF) 1 MG/ML SYRINGE IVP PRN (10:09)
[2020-09-14] MEDS ORDERED: Promethazine 6.25 MG in Water for inj. (sterile) 20 ML IVPB PRN (10:09)
[2020-09-14] MEDS ORDERED: *HR* Labetalol 20 MG/4 ML SYRINGE IVP PRN (10:09)
[2020-09-14] MEDS ORDERED: Famotidine 20 MG/2 ML VIAL IVP ONE (10:09)
[2020-09-14] MEDS ORDERED: Acetaminophen IV 1,000 MG/100 ML INFUS..BTL IVPB ONE (10:09)
[2020-09-14] MEDS ORDERED: Scopolamine Patch 1.5 MG PATCH.TD72 TD ONE (10:09)
[2020-09-14] MEDS ORDERED: Famotidine 20 MG/2 ML VIAL ONE (10:28)
[2020-09-14] MEDS ORDERED: *HR* Propofol 200 MG/20 ML VIAL IVP ONE (10:32)
[2020-09-14] MEDS ORDERED: *HR* Midazolam HCl 2 MG/2 ML VIAL ONE (10:32)
[2020-09-14] MEDS ORDERED: *HR* FentaNYL (PF) 100 MCG/2 ML VIAL ONE (10:32)
[2020-09-14] MEDS ORDERED: Lidocaine -MPF 2% 2 ML VIAL ONE (10:34)
[2020-09-14] MEDS ORDERED: *HR* Succinylcholine 200 MG/10 ML VIAL IVP ONE (10:34)
[2020-09-14] MEDS ORDERED: Scopolamine Patch 1.5 MG PATCH.TD72 ONE (10:34)
[2020-09-14] MEDS ORDERED: Lidocaine HCL 4 ML Topical Solution (Laryng-O-Jet Kit Sterile Pak) TP ONE (10:35)
[2020-09-14] MEDS ORDERED: *HR* PHENYLEPHRINE 1,000 MCG/10 ML SYRINGE IVP ONE ×2 (10:53→11:07)
[2020-09-14] MEDS ORDERED: Dexamethasone 4 MG/ML VIAL ONE (10:59)
[2020-09-14] MEDS ORDERED: Ondansetron 4 MG/2 ML VIAL ONE (10:59)
[2020-09-14] MEDS ORDERED: Ipratropium/Albuterol Neb 3 ML ONE (11:32)
[2020-09-14] MEDS: Ipratropium/Albuterol Neb 3 ML IH SCH ×4 (11:35→23:55)
[2020-09-14] MEDS: Ondansetron 4 MG/2 ML VIAL IVP PRN (21:01)
[2020-09-14] MEDS: tiZANidine 4 MG TABLET PO SCH (21:03)
[2020-09-14] MEDS: Melatonin 3 MG TABLET PO SCH (21:04)
[2020-09-15] MEDS: Ipratropium/Albuterol Neb 3 ML IH SCH ×2 (04:25→07:51)
[2020-09-15] MEDS: *HR* OxyCODONE Immed Rel 5 MG TABLET PO PRN (06:13)
[2020-09-15] MEDS: *HR* Heparin 5,000 UNIT/ML VIAL SQ SCH (06:14)
[2020-09-15 07:41] VITALS: BP 106/67
[2020-09-15] MEDS: Ascorbic Acid 500 MG TABLET PO SCH (08:10)
[2020-09-15] MEDS: BuPROPion SR (12 HR) 100 MG TABLET PO SCH (08:10)
[2020-09-15] MEDS: Aztreonam 1,000 MG in 0.9 % Sodium Chloride Mini Bag 100 ML IVPB SCH (08:11)
[2020-09-15] MEDS: atenoloL 50 MG TABLET PO SCH (08:11)
[2020-09-15] MEDS: NIFEdipine XL (24 HR) 30 MG TAB.ER.24 PO SCH (08:11)
[2020-09-15] MEDS: *HR* HYDROcodone/Acet 5/325 mg TABLET PO PRN (11:02)
== END 2020-09-15 12:35 | disposition home or self-care (01) ==
LOC: 3ANU
PROVIDERS: ADMIT Family Medicine; ATTEND Family Medicine

== ENCOUNTER 2022-02-05 17:02 | Observation (INO) ==
[2022-02-05 19:18] LABS: Basophils % 0.3 %; Eosinophils # 0.1 K/mcL (0.0-0.6); Eosinophils % 0.8 %; Hematocrit 46.9 % (35.3-44.9); Immature Granulocytes % 0.3 % (0-4); Lymphocytes # 2.6 K/mcL (0.6-4.6); Mean Corpuscular HGB Conc 34.1 g/dL (31.6-35.5); Mean Corpuscular Hemoglobin 32.4 pg (28.0-33.3); Mean Corpuscular Volume 94.9 fL (83.0-100.0); Mean Platelet Volume 10.4 fL (9.4-12.4); Monocytes % 4.4 %; Neutrophils # 9.1 K/mcL (1.6-8.9); Platelet Count 387 K/mcL (140-400); Red Blood Count 4.94 M/mcL (3.82-4.97); Red Cell Distribution Width 12.3 % (11.5-14.5); Segmented Neutrophils % 73.2 %; White Blood Count 12.4 K/mcL (4.3-11.1)
[2022-02-05 19:19] LABS: Monocytes # 0.6 K/mcL (0.0-1.3)
[2022-02-05 19:50] LABS: Bacteria,Urine Few per hpf (None-Few); Bilirubin,Urine Negative (Negative); Blood,Urine Small (Negative); Budding Yeast,Urine Few per hpf (None Seen); Clarity,Urine Turbid (Clear); Color,Urine Yellow (Yellow); Glucose,Urine (UA) Normal (Normal); Hyaline Casts,Urine Moderate per lpf (None Seen); Ketones,Urine 10 mg/dL (Negative); Leukocyte Esterase,Urine Large (Negative); Mucus,Urine Few per lpf (None-Few); Nitrite,Urine Negative (Negative); PH,Urine 7.5 pH Units (5.0-8.0); Protein,Urine 30 mg/dL (Neg-Trace); RBC,Urine 0-3 per hpf (0-3); Specific Gravity,Urine 1.018 (1.010-1.025); Squamous Epithelial Cell,Urine Many per hpf (None-Few); Urobilinogen,Urine Normal (Normal); WBC,Urine 30-50 per hpf (0-3)
[2022-02-05] MEDS ORDERED: 0.9 % Sodium Chloride 1,000 ML IV ONE (20:14)
[2022-02-05] MEDS ORDERED: *HR* FentaNYL (PF) 100 MCG/2 ML VIAL IVP ONE ×2 (20:14→21:29)
[2022-02-05] MEDS ORDERED: cefTRIAXone 1,000 MG in 0.9 % Sodium Chloride 10 ML IVP ONE (20:14)
[2022-02-05 20:17] LABS: Alanine Aminotransferase 38 Units/L (7-52); Albumin/Globulin Ratio 1.3 (1.1-2.2); Alkaline Phosphatase 172 Units/L (34-104); Aspartate Amino Transferase 47 Units/L (13-39); BUN/Creatinine Ratio 7 (6-26); Bilirubin,Direct 0.1 mg/dL (0.0-0.2); Bilirubin,Indirect 0.3 mg/dL (0.0-1.0); Bilirubin,Total 0.4 mg/dL (0.3-1.0); Blood Urea Nitrogen 6 mg/dL (6-20); Calcium 9.7 mg/dL (8.6-10.3); Carbon Dioxide 15 mEq/L (23-29); Chloride 101 mEq/L (98-107); Globulin 3.2 g/dL (2.4-3.5); Glucose 160 mg/dL (70-105); Osmolality,Calculated 281 (280-300); Potassium 4.2 mEq/L (3.5-5.1); Sodium 135 mEq/L (136-145); Total Protein 7.2 g/dL (6.4-8.9); eGFR For African Americans > 60 (> 60); eGFR For Non-African Americans > 60 (> 60)
[2022-02-05] MEDS ORDERED: Ondansetron 4 MG/2 ML VIAL IVP ONE (20:48)
[2022-02-05] MEDS ORDERED: Naloxone 0.4 MG/ML INJ IVP PRN (23:05)
[2022-02-05] MEDS ORDERED: *HR* OxyCODONE Immed Rel 5 MG TABLET PO PRN (23:05)
[2022-02-05] MEDS ORDERED: *HR* HYDROcodone/Acet 5/325 mg TABLET PO PRN (23:05)
[2022-02-05] MEDS ORDERED: Ondansetron 4 MG/2 ML VIAL IVP PRN (23:05)
[2022-02-05] MEDS ORDERED: *HR* Promethazine 25 MG/ML VIAL IM PRN (23:05)
[2022-02-05] MEDS ORDERED: Acetaminophen 325 MG TABLET PO PRN (23:05)
[2022-02-05] MEDS ORDERED: Melatonin 3 MG TABLET PO PRN (23:05)
[2022-02-05] MEDS ORDERED: Ringers Solution, Lactated 1,000 ML IVC ONE (23:10)
[2022-02-05] MEDS ORDERED: Ringers Solution, Lactated 1,000 ML IVC SCH (23:15)
[2022-02-06] MEDS ORDERED: Ibuprofen 600 MG TABLET PO ONE (00:03)
[2022-02-06 01:06] LABS: Basophils % 0.3 %; Eosinophils # 0.2 K/mcL (0.0-0.6); Eosinophils % 1.4 %; Hematocrit 38.5 % (35.3-44.9); Immature Granulocytes % 0.3 % (0-4); Lymphocytes # 3.2 K/mcL (0.6-4.6); Lymphocytes % 29.4 %; Mean Corpuscular HGB Conc 33.5 g/dL (31.6-35.5); Mean Corpuscular Hemoglobin 32.3 pg (28.0-33.3); Mean Corpuscular Volume 96.3 fL (83.0-100.0); Mean Platelet Volume 10.2 fL (9.4-12.4); Monocytes # 0.7 K/mcL (0.0-1.3); Monocytes % 6.7 %; Neutrophils # 6.8 K/mcL (1.6-8.9); Platelet Count 344 K/mcL (140-400); Red Cell Distribution Width 12.4 % (11.5-14.5); Segmented Neutrophils % 61.9 %
[2022-02-06 01:07] LABS: Hemoglobin 12.9 g/dL (11.5-15.4)
[2022-02-06 01:14] LABS: INR 1.1; Prothrombin Time 12.1 Seconds (9.4-12.1)
[2022-02-06 01:26] LABS: BUN/Creatinine Ratio 8 (6-26); Blood Urea Nitrogen 6 mg/dL (6-20); C-Reactive Protein 19 mg/L (Less than 10); Calcium 8.4 mg/dL (8.6-10.3); Carbon Dioxide 23 mEq/L (23-29); Chloride 104 mEq/L (98-107); Glucose 138 mg/dL (70-105); Magnesium 1.6 mg/dL (1.6-2.6); Osmolality,Calculated 286 (280-300); Potassium 3.5 mEq/L (3.5-5.1); Sodium 138 mEq/L (136-145); eGFR For African Americans > 60 (> 60); eGFR For Non-African Americans > 60 (> 60)
[2022-02-06 08:44] LABS: Phosphorous 2.3 mg/dL (2.7-4.5)
[2022-02-06] MEDS ORDERED: LEVONORGESTREL ETHIN ESTRADIOL PO SCH (09:00)
[2022-02-06] MEDS ORDERED: NIFEdipine XL (24 HR) 30 MG TAB.ER.24 PO SCH (09:00)
[2022-02-06] MEDS ORDERED: cefTRIAXone 1,000 MG in 0.9 % Sodium Chloride 10 ML IVP SCH (09:00)
[2022-02-06 10:56] VITALS: BP 135/71; PULSE 126; TEMP 97.9; O2SAT 92
[2022-02-06] MEDS ORDERED: Nitrofurantoin (BID) 100 MG CAPSULE PO SCH (17:00)
== END 2022-02-06 15:52 | disposition home or self-care (01) ==
LOC: 3ANU 17:02 → EMEROOARM 17:02 → 3ANU 22:30 → SUATTDRO 22:40
PROVIDERS: ADMIT Internal Medicine; ATTEND Internal Medicine